=== PATIENT | male | born 1930 | race Caucasian/White ===

== ENCOUNTER → 2017-04-24 | Emergency (ER) | payer OTHER, BC ==
[~2017-04-24] MED LIST: LEVOFLOXACIN 500 MG TABLET (FP) ONE; LEVOFLOXACIN 500 MG TABLET (FP) PO ONE
[2017-04-24 23:19] VITALS: BMI 33.0
--- NOTE | 2017-04-24 23:21 | PDOC ---
*Physical Exam - Vital Signs Last Vital Signs Temp Pulse Resp BP Pulse Ox 98.2 F 78 14 112/65 96 04/24/17 23:08 04/24/17 23:08 04/24/17 23:08 04/24/17 23:08 04/24/17 23:08
--- NOTE | 2017-04-24 23:46 | PDOC ---
History of Present Illness - General Chief Complaint: Urinary Problem Stated Complaint: FEVER Time Seen by Provider: 04/24/17 23:13 History Source: Patient - History of Present Illness Initial Comments: 04/25/17 01:04 86-year-old male" I have a UTI" patient was discharged from [facility] on 04/22/17 for urinary tract infection. "I am currently not on antibiotics" as per patient. Denies fever, nausea vomiting diarrhea, flank pain , suprapubic pain at this time. As per her son is patient's been home he is unable to move out of bed due to the height of the mattress. Patient recently moved into this new apartment, son fears for the safety Due to the lack of furniture in the house. 04/25/17 06:55 Past History - Past Medical History Allergies/Adverse Reactions: Allergies Allergy/AdvReac Type Severity Reaction Status Date / Time No Known Allergies Allergy Verified 04/24/17 23:08 Home Medications: Ambulatory Orders Atorvastatin Ca [Lipitor -] 20 mg PO HS 02/25/14 Docusate Sodium [Colace] 100 mg PO HS 02/25/14 Latanoprost [Xalatan] 1 drop OU DAILY 02/25/14 Metoprolol Succinate [Toprol Xl] 50 mg PO HS 02/25/14 Trazodone HCl [Desyrel -] 50 mg PO HS 02/25/14 Sennosides [Senna] 2 tab PO HS 04/24/17 Tamsulosin HCl [Flomax] 0.4 mg PO DAILY 04/24/17 Warfarin Na [Coumadin] 0 mg PO DAILY 04/24/17 Cardiac Disorders: Yes (CABG) Disorders: Yes (RECURRENT UTIS) HTN: Yes Hypercholesterolemia: Yes - Surgical History Cardiac Surgery: Yes (cabg) - Suicide/Smoking/Psychosocial Hx Smoking History: Unknown if ever smoked Have you smoked in the past 12 months: No Information on smoking cessation initiated: No Hx Alcohol Use: No Drug/Substance Use Hx: No Review of Systems - Review of Systems Able to Perform ROS?: Yes Is the patient limited Israeli proficient: No *Physical Exam - Vital Signs Last Vital Signs Temp Pulse Resp BP Pulse Ox 98.2 F 78 14 112/65 96 04/24/17 23:08 04/24/17 23:08 04/24/17 23:08 04/24/17 23:08 04/24/17 23:08 Heart Score/ECG Review - ECG Intrepretation Rhythm: Regular Rhythm Comment:: 04/25/17 06:57 Sinus rhythm with sinus arrythmia NSR: 66 ED Treatment Course - LABORATORY CBC & Chemistry Diagram: 04/25/17 00:30 04/25/17 00:30 Progress Note - Progress Note Progress Note: A: Safe discharge need P; work up negative. no acute finding. patient need social work/ case manager specialist evaluation Medical Decision Making - Medical Decision Making 04/25/17 03:36 patient was placed on short stay status. patient's living condition is not safe family is unable to look after patient medical condition. will place on ED Obs for direct care counselor help for safe d/c plan and placement. *DC/Admit/Observation/Transfer Diagnosis at time of Disposition: Elderly person living alone, Discharge planning issues - Discharge Dispostion Admit: Yes - Referrals Referrals: Jacquelin Campuzano MD [Primary Care Provider] -
[2017-04-25 00:37] LABS: EOSINOPHIL 3.4 % (0-4.5); MCH 27.9 pg (25.7-33.7); MCHC 32.4 g/dl (32.0-35.9); MEAN PLT VOLUME 8.9 fl (7.5-11.1); NEUTROPHILS 74.9 % (42.8-82.8); PLATELET COUNT 191 K/MM3 (134-434); RDW 16.1 % (11.9-15.9); WHITE BLOOD COUNT 8.4 K/mm3 (4.0-10.0)
[2017-04-25 00:57] LABS: INR 1.46 (0.82-1.09); PROTHROMBIN TIME (PATIENT) 16.5 SEC (9.98-11.88)
[2017-04-25 01:07] LABS: ALK PHOS 81 U/L (45-117); ANION GAP 9 (8-16); BILIRUBIN,TOTAL 0.4 mg/dL (0.2-1.0); CALCIUM 8.1 mg/dL (8.5-10.1); CO2 26 mmol/L (21-32); CREATININE 0.9 mg/dL (0.7-1.3); GLUCOSE,RANDOM 97 mg/dL (74-106); SGOT/AST 20 U/L (15-37); SGPT/ALT 24 U/L (12-78); TOT PROT 6.5 g/dl (6.4-8.2)
[2017-04-25 02:59] LABS: URINE APPEARANCE SLCLOUDY; URINE BILIRUBIN NEGATIVE (NEGATIVE); URINE BLOOD NEGATIVE (NEGATIVE); URINE COLOR YELLOW; URINE GLUCOSE (UA) NEGATIVE (NEGATIVE); URINE KETONE NEGATIVE (NEGATIVE); URINE NITRITE NEGATIVE (NEGATIVE); URINE UROBILINOGEN NEGATIVE mg/dL (0.2-1.0)
[2017-04-25 03:11] LABS: URINE PROTEIN 1+ (NEGATIVE)
--- NOTE | 2017-04-25 07:29 | PDOC ---
*Physical Exam - Vital Signs Last Vital Signs Temp Pulse Resp BP Pulse Ox 98.2 F 78 14 112/65 96 04/24/17 23:08 04/24/17 23:08 04/24/17 23:08 04/24/17 23:08 04/24/17 23:08 - Physical Exam General Appearance: Yes: Appropriately Dressed. No: Apparent Distress HEENT: positive: Normal Voice Neck: positive: Supple Respiratory/Chest: positive: Lungs Clear, Normal Breath Sounds. negative: Respiratory Distress Cardiovascular: positive: Regular Rate, S1, S2 Gastrointestinal/Abdominal: negative: Tender, Soft Extremity: positive: Normal Inspection Integumentary: positive: Dry, Warm Neurologic: positive: Alert, Normal Mood/Affect ED Treatment Course - LABORATORY CBC & Chemistry Diagram: 04/25/17 00:30 04/25/17 00:30 - ADDITIONAL ORDERS Additional order review: Laboratory Results 04/25/17 04/25/17 04/25/17 02:20 00:30 00:30 PT with INR 16.50 H INR 1.46 H D Sodium 139 Potassium 4.4 Chloride 104 Carbon Dioxide 26 Anion Gap 9 BUN 13 Creatinine 0.9 Creat Clearance w eGFR > 60 Random Glucose 97 D Calcium 8.1 L Total Bilirubin 0.4 AST 20 D ALT 24 D Alkaline Phosphatase 81 Total Protein 6.5 Albumin 3.0 L Urine Color Yellow Urine Appearance Slcloudy Urine pH 6.0 Urine Protein 1+ H Urine Glucose (UA) Negative Urine Ketones Negative Urine Blood Negative Urine Nitrite Negative Urine Bilirubin Negative Urine Urobilinogen Negative 04/25/17 00:30 RBC 5.13 MCV 86.0 MCHC 32.4 RDW 16.1 H MPV 8.9 Neutrophils % 74.9 Lymphocytes % 12.9 D Monocytes % 7.8 Eosinophils % 3.4 Basophils % 1.0 Medical Decision Making - Medical Decision Making 04/25/17 07:28 Pt signed out to me at 7am 86-year-old male history of hyperlipidemia, hypertension, CAD status post CABG, CHF, afib on coumaidn, CVA, CKD, urosepsis, BPH, admitted to [facility] for UTI and discharged approximately 3 days ago and now brought in by son who states patient is not safe to be home as recently moved into new apartment and does not have furniture. Patient currently sleeping on mattress on the floor. Patient has no acute complaints in this time and as per prior team, labs and UA in ED within normal limits. Patient pending assessment/disposition by manager case this a.m. 04/25/17 11:33 manager process requesting PT eval in ED. PT evaluated by PT who recommends short- term placement for safe management of ambulation and ADLs. Plan is for patient to be placed in [facility] per manager case. I contacted [facility] and spoke to staff in and medical records. Will fax over report from patient's last admission. Medical release form signed by patient and faxed over to facility 04/25/17 11:34 04/25/17 14:23 Medical records received from [facility]. Confirms that patient was being treated for UTI after presenting with generalized weakness. Had 4+ pan w/ LE on UA, no ucx on records. As per documentation, Levaquin 500 mg sent to pharmacy for a total of 3 tablets. Will give 1 dose while here in ED. Will include on patient's discharge papers to alf, that patient's need to take 2 additional doses of Levaquin 04/25/17 14:26 04/25/17 14:36 *DC/Admit/Observation/Transfer Diagnosis at time of Disposition: Elderly person living alone, Discharge planning issues UTI (urinary tract infection) Qualifiers: Urinary tract infection type: site unspecified Hematuria presence: without hematuria Qualified Code(s): N39.0 - Urinary tract infection, site not specified - Discharge Dispostion Disposition: HOME Condition at time of disposition: Good - Prescriptions Prescriptions: Levofloxacin [Levaquin] 500 mg PO DAILY #2 tablet - Referrals Referrals: Jacquelin Campuzano MD [Primary Care Provider] - - Patient Instructions Printed Discharge Instructions: DI for Urinary Tract Infection (UTI) Additional Instructions: Please continue Levaquin for UTI that was diagnosed at [facility]. You were discharged with Levaquin 500 mg daily for a total of 3 tablets. We gave you a dose of Levaquin while you were in ED. You will need to take Levaquin for 2 additional days. We sent rx to your pharmacy ([facility]) Please follow up with your PMD for your chronic medical conditions - Post Discharge Activity
[2017-04-25 09:23] LABS: URINE LEUK ESTERASE TRACE (NEGATIVE)
[2017-04-25 14:52] VITALS: BP 126/77; PULSE 72; TEMP 97.7
--- NOTE | 2017-04-25 20:02 | EKG ---
Test Reason : Blood Pressure : / mmHG Vent. Rate : 066 BPM Atrial Rate : 066 BPM P-R Int : 184 ms QRS Dur : 112 ms QT Int : 448 ms P-R-T Axes : 082 007 055 degrees QTc Int : 469 ms POOR DATA QUALITY, INTERPRETATION MAY BE ADVERSELY AFFECTED SINUS RHYTHM WITH ATRIAL PREMATURE BEATS LOW VOLTAGE QRS POSSIBLE INFERIOR INFARCT , AGE UNDETERMINED ABNORMAL ECG WHEN COMPARED WITH ECG OF 03-JUN-2010 19:32, BORDERLINE CRITERIA FOR INFERIOR INFARCT ARE NOW PRESENT BASELINE ARTIFACT REPEAT EKG INDICATED Confirmed by JAYMIE RAY MD ([id number]) on 04/25/2017 8:02:23 PM Referred By: Confirmed By:JAYMIE RAY MD
== END ==
LOC: JER 23:05
DX: Z59.1 Inadequate housing (principal); Z87.440 Personal history of urinary (tract) infections; I25.810 Atherosclerosis of coronary artery bypass graft(s) without angina pectoris; I13.10 Hypertensive heart and chronic kidney disease without heart failure, with stage 1 through stage 4 chronic kidney disease, or unspecified chronic kidney disease; N18.9 Chronic kidney disease, unspecified; Z95.1 Presence of aortocoronary bypass graft; I48.91 Unspecified atrial fibrillation; Z79.01 Long term (current) use of anticoagulants; E78.00 Pure hypercholesterolemia, unspecified; N40.0 Benign prostatic hyperplasia without lower urinary tract symptoms; Z86.73 Personal history of transient ischemic attack (TIA), and cerebral infarction without residual deficits
CPT/HCPCS: 36415; 71010-TC; 80053; 81003; 81015; 85025; 85610; 87086; 93005; 93010; 99285-25

== ENCOUNTER 2017-05-23 13:40 | Emergency (ER) | payer OTHER, BC ==
[2017-05-23 13:51] VITALS: BMI 33.9
[2017-05-23 16:12] LABS: URINE APPEARANCE TURBID; URINE BILIRUBIN NEGATIVE (NEGATIVE); URINE BLOOD 1+ (NEGATIVE); URINE COLOR AMBER; URINE GLUCOSE (UA) NEGATIVE (NEGATIVE); URINE KETONE NEGATIVE (NEGATIVE); URINE NITRITE POSITIVE (NEGATIVE); URINE UROBILINOGEN NEGATIVE mg/dL (0.2-1.0)
--- NOTE | 2017-05-23 16:27 | PDOC ---
History of Present Illness - General Chief Complaint: Urinary Problem Stated Complaint: POSS UTI Time Seen by Provider: 05/23/17 14:46 History Source: Patient Exam Limitations: No Limitations - History of Present Illness Initial Comments: 05/23/17 16:25 87yo male with h/o HTN, hyperlipidemia, CAD s/p CABG, h/o CVA, paroxysmal atrial fibrillation on pradaxa, BPH, CKD, recurrent UTIs with h/o indwelling lang and suprapubic catheters who presents to the ED after hwe was sent here by his son for UTI. Patient claims that he knocked over a chamber pot of urine that the son cleaned up which made him realize the urine smelled bad and looked cloudy. Past History - Past Medical History Allergies/Adverse Reactions: Allergies Allergy/AdvReac Type Severity Reaction Status Date / Time No Known Allergies Allergy Verified 05/23/17 13:42 Home Medications: Ambulatory Orders Atorvastatin Ca [Lipitor -] 20 mg PO HS 02/25/14 Docusate Sodium [Colace] 100 mg PO HS 02/25/14 Latanoprost [Xalatan] 1 drop OU DAILY 02/25/14 Metoprolol Succinate [Toprol Xl] 50 mg PO HS 02/25/14 Trazodone HCl [Desyrel -] 50 mg PO HS 02/25/14 Sennosides [Senna] 2 tab PO HS 04/24/17 Tamsulosin HCl [Flomax] 0.4 mg PO DAILY 04/24/17 Warfarin Na [Coumadin] 0 mg PO DAILY 04/24/17 Levofloxacin [Levaquin] 500 mg PO DAILY #2 tablet 04/25/17 Cephalexin [Keflex] 500 mg PO BID 7 Days #14 capsule 05/23/17 Cardiac Disorders: Yes (CABG) Dementia: Yes (early alzheimers?) Disorders: Yes (RECURRENT UTIS) HTN: Yes Hypercholesterolemia: Yes - Surgical History Cardiac Surgery: Yes (cabg) - Suicide/Smoking/Psychosocial Hx Smoking History: Never smoked Have you smoked in the past 12 months: No Hx Alcohol Use: No Drug/Substance Use Hx: No Review of Systems - Review of Systems Able to Perform ROS?: Yes Constitutional: No: Symptoms Reported HEENTM: No: Symptoms Reported Respiratory: No: Symptoms reported Cardiac (ROS): No: Symptoms Reported ABD/GI: No: Symptoms Reported : No: Symptoms Reported Musculoskeletal: No: Symptoms Reported Integumentary: No: Symptoms Reported Neurological: No: Symptoms reported All Other Systems: Reviewed and Negative *Physical Exam - Vital Signs Last Vital Signs Temp Pulse Resp BP Pulse Ox 98.3 F 70 18 111/50 96 05/23/17 13:42 05/23/17 13:42 05/23/17 13:42 05/23/17 13:42 05/23/17 13:42 - Physical Exam General Appearance: Yes: Disheveled, Obese HEENT: positive: EOMI, Pale Conjunctivae Neck: negative: Tender Respiratory/Chest: positive: Lungs Clear, Normal Breath Sounds. negative: Chest Tender Cardiovascular: positive: Regular Rhythm, Regular Rate, S1, S2 Gastrointestinal/Abdominal: positive: Normal Bowel Sounds, Protuberent, Distended. negative: Tender Extremity: positive: Normal Capillary Refill Neurologic: positive: Fully Oriented, Alert, Motor Strength 5/5 ED Treatment Course - LABORATORY CBC & Chemistry Diagram: 05/23/17 16:22 05/23/17 16:22 Medical Decision Making - Medical Decision Making 05/23/17 19:06 87M sent by son for UTI. senior operations manager investigating patient recurrent admissions for UTI followed by Rehab/NH stay back to back. Urine turbid. Patient treated with Keflex. Patient demanding to be treated outpatient and wishes to leave the ER. Keflex prescription sent *DC/Admit/Observation/Transfer Diagnosis at time of Disposition: UTI (urinary tract infection) - Discharge Dispostion Disposition: HOME Admit: No - Prescriptions Prescriptions: Cephalexin [Keflex] 500 mg PO BID 7 Days #14 capsule - Referrals Referrals: Ana Paula Stephens MD [Primary Care Provider] - - Patient Instructions - Post Discharge Activity
[2017-05-23 16:50] LABS: BASOPHIL 0.3 % (0-2.0); EOSINOPHIL 1.3 % (0-4.5); MCH 26.9 pg (25.7-33.7); MCHC 31.4 g/dl (32.0-35.9); MEAN CELL VOLUME 85.6 fl (80-96); MEAN PLT VOLUME 8.7 fl (7.5-11.1); PLATELET COUNT 236 K/MM3 (134-434); RDW 16.8 % (11.9-15.9); WHITE BLOOD COUNT 11.6 K/mm3 (4.0-10.0)
[2017-05-23 17:04] LABS: URINE PROTEIN 2+ (NEGATIVE)
[2017-05-23 17:15] LABS: ALBUMIN 3.3 g/dl (3.4-5.0); ALK PHOS 92 U/L (45-117); ANION GAP 5 (8-16); BILIRUBIN,TOTAL 0.3 mg/dL (0.2-1.0); CALCIUM 8.8 mg/dL (8.5-10.1); CO2 33 mmol/L (21-32); CREATININE 1.2 mg/dL (0.7-1.3); GLUCOSE,RANDOM 89 mg/dL (74-106); SGOT/AST 13 U/L (15-37); SGPT/ALT 17 U/L (12-78); TOT PROT 6.9 g/dl (6.4-8.2)
[2017-05-23] MEDS ORDERED: CEPHALEXIN MONOHYDRATE 500 MG CAPSULE (UD) PO ONE (17:31)
--- NOTE | 2017-05-23 17:55 | PDOC ---
Attending Attestation - Resident Resident Name: Semaj West - ED Attending Attestation I have performed the following: I have examined & evaluated the patient, The case was reviewed & discussed with the resident, I agree w/resident's findings & plan, Exceptions are as noted - HPI HPI: 05/23/17 18:29 87 yo male came in because son was concerned his urine"smelled bad". - Physicial Exam PE: 05/23/17 18:32 heavy set alert 87 yo male brougth in by
[2017-05-23 18:49] LABS: URINE BACTERIA MODERATE /hpf (NONE SEEN); URINE MUCUS RARE; URINE RBC 16 /hpf (0-3); URINE WBC 1553 /hpf (3-5)
[2017-05-23 19:13] VITALS: BP 110/78; PULSE 74; TEMP 98.8
[2017-05-23 20:24] LABS: URINE LEUK ESTERASE 2+ (NEGATIVE)
== END 2017-05-23 20:40 | disposition home or self-care (01) ==
LOC: JER 13:40
DX: N39.0 Urinary tract infection, site not specified (principal); I25.810 Atherosclerosis of coronary artery bypass graft(s) without angina pectoris; I10 Essential (primary) hypertension; Z95.1 Presence of aortocoronary bypass graft; I48.0 Paroxysmal atrial fibrillation; Z79.01 Long term (current) use of anticoagulants; I12.9 Hypertensive chronic kidney disease with stage 1 through stage 4 chronic kidney disease, or unspecified chronic kidney disease; N18.9 Chronic kidney disease, unspecified; E78.00 Pure hypercholesterolemia, unspecified; N40.0 Benign prostatic hyperplasia without lower urinary tract symptoms; Z86.73 Personal history of transient ischemic attack (TIA), and cerebral infarction without residual deficits; G30.8 Other Alzheimer's disease; F02.80 Dementia in other diseases classified elsewhere, unspecified severity, without behavioral disturbance, psychotic disturbance, mood disturbance, and anxiety; Z87.440 Personal history of urinary (tract) infections
CPT/HCPCS: 36415; 80053; 81003; 81015; 85025; 87086; 99282-25

== ENCOUNTER 2017-08-24 01:26 | Inpatient (IN) | payer OTHER, BC ==
[2017-08-24 02:05] VITALS: BMI 26.9
--- NOTE | 2017-08-24 02:36 | PDOC ---
Attending Attestation - HPI HPI: 08/24/17 02:44 The patient is a 87 year old female, with a significant past medical history of indwelling lang, htn, hld, and frequent UTI, who presents to the emergency department with one week of foul smelling, cloudy urine. He denies pain on urination. The patient states this feels like a UTI. The patient denies chest pain, shortness of breath, headache and dizziness. The patient denies fever, chills, nausea, vomit, diarrhea and constipation. The patient denies dysuria, frequency, urgency and hematuria. Allergies: NKDA - Medical Decision Making 08/24/17 02:44 Documentation prepared by Karena Collado, acting as medical physics professor for Gopal Gayle DO <Karena Collado - Last Filed: 08/24/17 02:43> - Resident Resident Name: Sd Gatica - ED Attending Attestation I have performed the following: I have examined & evaluated the patient, The case was reviewed & discussed with the resident, I agree w/resident's findings & plan, Exceptions are as noted - Physicial Exam PE: 08/24/17 03:23 Physical Exam General Appearance: Yes: Appropriately Dressed. No: Apparent Distress, Intoxicated HEENT: positive: EOMI, COLIN, Normal ENT Inspection, Normal Voice, TMs Normal, Pharynx Normal. negative: Pale Conjunctivae, Photophobia, Scleral Icterus (R), Scleral Icterus (L) Neck: positive: Trachea midline, Normal Thyroid, Supple. negative: Tender, Rigid, Carotid bruit, Stridor, Lymphadenopathy (R), Lymphadenopathy (L), Thyromegaly Respiratory/Chest: positive: Lungs Clear, Normal Breath Sounds. negative: Chest Tender, Respiratory Distress, Accessory Muscle Use, Labored Respiration, RES, Crackles, Rales, Rhonchi, Stridor, Wheezing, Dullness Cardiovascular: positive: Regular Rhythm, Regular Rate, S1, S2. negative: Edema , JVD, Murmur, Bradycardia, Tachycardia Vascular Pulses: Dorsalis-Pedis (R): 2+, Doralis-Pedis (L): 2+ Gastrointestinal/Abdominal: positive: Normal Bowel Sounds, Flat, Soft. negative : Tender, Organomegaly, Pulsatile Mass, Increased Bowel Sounds, Decreased BS, Distended, Guarding, Rebound, Hernia, Hepatomegaly, Spleenomegaly Lymphatic: negative: Adenopathy, Tenderness Musculoskeletal: positive: Normal Inspection. negative: CVA Tenderness, Decreased Range of Motion Extremity: positive: Normal Capillary Refill, Normal Inspection, Normal Range of Motion, Pelvis Stable. negative: Tender, Pedal Edema, Swelling, Erythema Integumentary: positive: Normal Color, Dry, Warm. negative: Cyanotic, Erythema , Jaundice, Rash Neurologic: positive: systems security analyst II-XII NML intact, Fully Oriented, Alert, Normal Mood/ Affect, Motor Strength 5/5. negative: EOM Palsy, Facial Droop, Sensory Deficit <Gopal Gayle - Last Filed: 08/24/17 03:24>
[2017-08-24 02:39] LABS: BASO % 0.5 % (0-2.0); EOS % 2.4 % (0-4.5); HEMATOCRIT 39.6 % (35.4-49); HEMOGLOBIN 12.8 GM/dL (11.7-16.9); LYMPH % 9.5 % (8-40); MCHC 32.2 g/dl (32.0-35.9); MEAN CELL VOLUME 86.9 fl (80-96); MEAN PLT VOLUME 9.2 fl (7.5-11.1); MONO % 9.7 % (3.8-10.2); NEUT % 77.9 % (42.8-82.8); PLATELET COUNT 169 K/MM3 (134-434); RBC 4.56 M/mm3 (4.00-5.60); RDW 16.1 % (11.9-15.9); WHITE BLOOD COUNT 7.4 K/mm3 (4.0-10.0)
--- NOTE | 2017-08-24 02:49 | PDOC ---
History of Present Illness - General Chief Complaint: Urinary Problem Stated Complaint: UTI Time Seen by Provider: 08/24/17 01:58 - History of Present Illness Initial Comments: 08/24/17 02:43 The patient is an 87 year old male with a history of HTN, HLD, CAD, Recurrent UTI who presents for evaluation for a possible UTI. The patient reports a 1 week history of foul smelling and cloudy urine prompting his presentation to the ED for evaluation. He states that he believes he has another UTI. He otherwise denies fevers, chills, SOB, chest pain, nausea, vomiting, abdominal pain, or changes with bowel movements. He denies any pain with urination or burning on urination as well. Past History - Past Medical History Allergies/Adverse Reactions: Allergies Allergy/AdvReac Type Severity Reaction Status Date / Time No Known Allergies Allergy Verified 08/24/17 02:03 Home Medications: Ambulatory Orders Atorvastatin Ca [Lipitor -] 20 mg PO HS 02/25/14 Docusate Sodium [Colace] 100 mg PO HS 02/25/14 Latanoprost [Xalatan] 1 drop OU DAILY 02/25/14 Metoprolol Succinate [Toprol Xl] 50 mg PO HS 02/25/14 traZODone HCL [Desyrel -] 50 mg PO HS 02/25/14 Sennosides [Senna] 2 tab PO HS 04/24/17 Tamsulosin HCl [Flomax] 0.4 mg PO DAILY 04/24/17 Warfarin Na [Coumadin] 0 mg PO DAILY 04/24/17 Levofloxacin [Levaquin] 500 mg PO DAILY #2 tablet 04/25/17 Cephalexin [Keflex] 500 mg PO BID 7 Days #14 capsule 05/23/17 Doxycycline Hyclate [Vibramycin -] 100 mg PO BID #14 cap 08/24/17 Cardiac Disorders: Yes (CABG) Dementia: Yes (early alzheimers?) Disorders: Yes (RECURRENT UTIS) HTN: Yes Hypercholesterolemia: Yes - Surgical History Cardiac Surgery: Yes (cabg) - Suicide/Smoking/Psychosocial Hx Smoking History: Never smoked Have you smoked in the past 12 months: No Information on smoking cessation initiated: No Hx Alcohol Use: No Drug/Substance Use Hx: No Review of Systems - Review of Systems Comments:: 08/24/17 02:49 Constitutional: No fevers, chills, fatigue, malaise HEENT: No Rhinorrhea, nasal congestion, visual changes Cardiovascular: No chest pain, syncope, palpitations, lightheadedness Respiratory: No Cough, SOB, Hemoptysis, Gastrointestinal: No Abdominal pain, Nausea, Vomiting, Constipation, Diarrhea, Melena Genitourinary: Cloudy and foul smelling urine. No Dysuria, Frequency, Urgency, Hesitancy, Hematuria, Flank pain Musculoskeletal: No Myalgia, arthralgia Skin: No rashes, itching, bruising, pallor Neurologic: No Headache, Dizziness, Numbness, Weakness, or Tingling Psychiatric: No Hallucinations. No SI or HI *Physical Exam - Vital Signs Last Vital Signs Temp Pulse Resp BP Pulse Ox 64 14 99/53 94 L 08/24/17 02:03 08/24/17 02:03 08/24/17 02:03 08/24/17 02:03 - Physical Exam Comments: 08/24/17 02:49 General Appearance: Nourished. No Apparent Distress HEENT: No Pharyngeal Erythema, Tonsillar Exudate, Tonsillar Erythema Neck: No Cervical Lymphadenopathy Respiratory/Chest: Lungs Clear, Normal Breath Sounds. No Crackles, Rales, Rhonchi, Wheezing Cardiovascular: Regular Rhythm, Regular Rate. No Murmur, Gallops, Rubs Gastrointestinal/Abdominal: Normal Bowel Sounds, Soft. No Guarding, Rebound, Tenderness Musculoskeletal: No CVA Tenderness Extremity: Normal Capillary Refill Integumentary: Normal Color, Dry, Warm Neurologic: Fully Oriented, Alert, Normal Mood/Affect, Normal Response, ED Treatment Course - LABORATORY CBC & Chemistry Diagram: 08/24/17 02:32 08/24/17 02:32 - ADDITIONAL ORDERS Additional order review: 08/24/17 02:32 RBC 4.56 MCV 86.9 MCHC 32.2 RDW 16.1 H MPV 9.2 Neutrophils % 77.9 Lymphocytes % 9.5 Monocytes % 9.7 Eosinophils % 2.4 D Basophils % 0.5 Medical Decision Making - Medical Decision Making 08/24/17 02:50 The patient is an 87 year old male with a history of HTN, HLD, CAD, Recurrent UTI who presents for evaluation for a possible UTI. Given the patient's history of recurrently uti and symptoms, it is likely his symptoms are due to another UTI. We will send a cbc, cmp, UA, urine culture to evaluate further. We will continue to monitor and reassess. 08/24/17 03:49 cbc, cmp are unremarkable. UA demonstrates 1+ leuk esterase with 355 WBC concerning for uti. Given the patient's recurrent uti despite previous treatment with keflex and levoquin, we believe he requires admission for iv antibiotics at this time. We discussed the case with the hospitalist team who accepted the patient for admission. We will start the patient on ceftriaxone here in the ED. We discussed the results and the plan with the patient who voiced understanding and is agreeable with the plan. *DC/Admit/Observation/Transfer Diagnosis at time of Disposition: UTI (urinary tract infection) Qualifiers: Urinary tract infection type: acute cystitis Hematuria presence: with hematuria Qualified Code(s): N30.01 - Acute cystitis with hematuria - Discharge Dispostion Condition at time of disposition: Stable Admit: Yes - Prescriptions Prescriptions: Doxycycline Hyclate [Vibramycin -] 100 mg PO BID #14 cap - Referrals Referrals: Ana Paula Stephens MD [Primary Care Provider] - - Patient Instructions - Post Discharge Activity
[2017-08-24 03:04] LABS: ALBUMIN 2.9 g/dl (3.4-5.0); ANION GAP 10 (8-16); BILIRUBIN,TOTAL 0.5 mg/dL (0.2-1.0); BLOOD UREA NITROGEN 22 mg/dL (7-18); CALCIUM 8.7 mg/dL (8.5-10.1); CHLORIDE 104 mmol/L (98-107); CO2 27 mmol/L (21-32); CREATININE 0.9 mg/dL (0.7-1.3); GLUCOSE,RANDOM 95 mg/dL (74-106); SGPT/ALT 10 U/L (12-78); SODIUM 141 mmol/L (136-145); TOT PROT 6.4 g/dl (6.4-8.2)
[2017-08-24 03:05] LABS: ALK PHOS 85 U/L (45-117)
[2017-08-24 03:06] LABS: POTASSIUM 4.4 mmol/L (3.5-5.1); SGOT/AST 16 U/L (15-37)
[2017-08-24 03:12] LABS: URINE APPEARANCE CLOUDY; URINE BILIRUBIN NEGATIVE (NEGATIVE); URINE BLOOD 1+ (NEGATIVE); URINE COLOR DKYELLOW; URINE GLUCOSE (UA) NEGATIVE (NEGATIVE); URINE KETONE TRACE (NEGATIVE); URINE NITRITE NEGATIVE (NEGATIVE); URINE UROBILINOGEN NEGATIVE mg/dL (0.2-1.0)
[2017-08-24 03:17] LABS: URINE LEUK ESTERASE 1+ (NEGATIVE); URINE PROTEIN 1+ (NEGATIVE)
[2017-08-24 03:19] LABS: EPI CELLS FEW /HPF (FEW); URINE BACTERIA MANY /hpf (NONE SEEN); URINE MUCUS RARE
[2017-08-24] MEDS ORDERED: DOXYCYCLINE HYCLATE 100 MG CAPSULE PO ONE (03:22)
[2017-08-24] MEDS ORDERED: cefTRIAXone 1 GM/50 ML BAG (PRE-DOCKED) IVPB ONE (04:00)
--- NOTE | 2017-08-24 04:08 | HP ---
PCP: Ana Paula Stephens CHIEF COMPLAINT: Foul-smelling urine HISTORY OF PRESENT ILLNESS: This is an 87 year old man with a history of UTIs who comes to the ER this morning at the advice of his son because he has been noticing foul-smelling urine and urinary frequency for about 2 weeks. He denies fever, chills, abdominal pain, back pain, flank pain, dysuria, hematuria, nausea. He had been admitted at [facility] in April 2017 for UTI and treated with Levaquin. He was seen in the ED here on 04/25 and admitted to [facility]. He was discharged from [facility] on 05/22 and seen in the ED here on 05/23 and again diagnosed with a UTI. He was treated with Keflex. Urine culture was contaminated. PAST MEDICAL HISTORY CAD HTN Hyperlipidemia PAF BPH UTIs PAST SURGICAL HISTORY CABG Allergies No Known Allergies Allergy (Verified 08/24/17 02:03) Home Medications Medication Instructions Recorded Atorvastatin Ca [Lipitor -] 20 mg PO HS 02/25/14 Docusate Sodium [Colace] 100 mg PO HS 02/25/14 Latanoprost [Xalatan] 1 drop OU DAILY 02/25/14 Metoprolol Succinate [Toprol Xl] 50 mg PO HS 02/25/14 traZODone HCL [Desyrel -] 50 mg PO HS 02/25/14 Sennosides [Senna] 2 tab PO HS 04/24/17 Tamsulosin HCl [Flomax] 0.4 mg PO DAILY 04/24/17 Warfarin Na [Coumadin] 0 mg PO DAILY 04/24/17 Levofloxacin [Levaquin] 500 mg PO DAILY #2 tablet 04/25/17 Cephalexin [Keflex] 500 mg PO BID 7 Days #14 capsule 05/23/17 Doxycycline Hyclate [Vibramycin -] 100 mg PO BID #14 cap 08/24/17 Social History: Smoking: Former smoker Alcohol: Denies Drugs: Denies Recent Travel: No Family History: Unremarkable REVIEW OF SYSTEMS CONSTITUTIONAL: Absent: fever, chills, diaphoresis, generalized weakness, malaise, loss of appetite, weight change HEENT: Absent: rhinorrhea, nasal congestion, throat pain, throat swelling, difficulty swallowing, mouth swelling, ear pain, eye pain, visual changes CARDIOVASCULAR: Absent: chest pain, syncope, palpitations, lightheadedness, peripheral edema RESPIRATORY: Absent: cough, shortness of breath, dyspnea with exertion, orthopnea, wheezing, stridor, hemoptysis GASTROINTESTINAL: Absent: abdominal pain, abdominal distension, nausea, vomiting , diarrhea, constipation, melena, hematochezia GENITOURINARY: Present: urinary frequency. Absent: dysuria, urgency, hesitancy , hematuria, flank pain MUSCULOSKELETAL: Absent: myalgia, arthralgia, joint swelling, back pain, neck pain SKIN: Absent: rash, itching, pallor HEMATOLOGIC/IMMUNOLOGIC: Absent: easy bleeding, easy bruising, lymphadenopathy ENDOCRINE: Absent: unexplained weight gain, unexplained weight loss, heat intolerance, cold intolerance NEUROLOGIC: Absent: headache, focal weakness, paresthesias, dizziness, unsteady gait, seizure, mental status changes, bladder or bowel incontinence PSYCHIATRIC: Absent: anxiety, depression, suicidal or homicidal ideation, hallucinations. PHYSICAL EXAMINATION Vital Signs - 24 hr 08/24/17 02:03 Pulse Rate 64 Respiratory 14 Rate Blood Pressure 99/53 O2 Sat by Pulse 94 L Oximetry (%) GENERAL: Awake, alert, and fully oriented, in no acute distress. HEAD: Normal with no signs of trauma. EYES: Pupils equal, round and reactive to light, extraocular movements intact, sclerae anicteric, conjunctivae clear. EARS, NOSE, THROAT: Ears normal, nares patent, oropharynx clear without exudates. Moist mucous membranes. NECK: Normal range of motion, supple without lymphadenopathy, JVD, or masses. LUNGS: Breath sounds equal, clear to auscultation bilaterally. No wheezes, and no crackles. No accessory muscle use. HEART: Regular rate and rhythm, normal S1 and S2 without murmur, rub or gallop. ABDOMEN: Obese, soft, nontender, not distended, normoactive bowel sounds, no guarding, no rebound, no masses. No hepatomegaly or splenomegaly. MUSCULOSKELETAL: (+) Left ankle deformity. No CVA tenderness. UPPER EXTREMITIES: 2+ pulses, warm, well-perfused. No cyanosis. No clubbing. No peripheral edema. LOWER EXTREMITIES: 2+ pulses, warm, well-perfused. No calf tenderness. No peripheral edema. NEUROLOGICAL: Cranial nerves II-XII intact. Normal speech. Gait not observed. PSYCHIATRIC: Cooperative. Good eye contact. Appropriate mood and affect. SKIN: Warm, dry, normal turgor, no rashes or lesions noted, normal capillary refill. Laboratory Results - last 24 hr 08/24/17 08/24/17 08/24/17 02:32 02:32 03:03 WBC 7.4 D RBC 4.56 Hgb 12.8 Hct 39.6 MCV 86.9 MCH 28.0 MCHC 32.2 RDW 16.1 H Plt Count 169 D MPV 9.2 Neutrophils % 77.9 Lymphocytes % 9.5 Monocytes % 9.7 Eosinophils % 2.4 D Basophils % 0.5 Sodium 141 Potassium 4.4 Chloride 104 Carbon Dioxide 27 Anion Gap 10 BUN 22 H Creatinine 0.9 D Creat Clearance w eGFR > 60 Random Glucose 95 Calcium 8.7 Total Bilirubin 0.5 D AST 16 D ALT 10 L D Alkaline Phosphatase 85 Total Protein 6.4 Albumin 2.9 L Urine Color Dkyellow Urine Appearance Cloudy Urine pH 8.0 Ur Specific Ransom 1.015 Urine Protein 1+ H Urine Glucose (UA) Negative Urine Ketones Trace H Urine Blood 1+ H Urine Nitrite Negative Urine Bilirubin Negative Urine Urobilinogen Negative Ur Leukocyte Esterase 1+ H Urine WBC (Auto) 355 Urine RBC (Auto) 17 Ur Epithelial Cells Few Urine Bacteria Many Urine Mucus Rare ASSESSMENT/PLAN: This is an 87 year old man with a history of UTIs (last 05/2017), CAD, CABG, HTN , hyperlipidemia, PAF, BPH who presented to the ED today with foul-smelling urine and frequency of urination x 2 weeks. He was found to have 1+ protein, 1+ blood, 1+ leukocyte esterase, 355 WBC in his urine. 1. UTI, recurrent - No evidence for sepsis - Afebrile and has normal WBC - As per the patient, he has not been on antibiotics since 05/2017 - urine culture at that time was contaminated - There is no known history of resistance - Rocephin given in ED - will continue - Follow-up urine culture 2. CAD, history of CABG - Continue Toprol XL, Lipitor 3. HTN - Continue Toprol XL 4. Hyperlipidemia - Continue Lipitor 5. Paroxysmal atrial fibrillation - Currrently in sinus rhythm - Was on Coumadin in the past but not clear if he is on any anticoagulant at this time - Will check INR and confirm medications 6. BPH - Continue Flomax Visit type - Emergency Visit Emergency Visit: Yes Care time: The patient presented to the Emergency Department on the above date and was hospitalized for further evaluation of their emergent condition. - New Patient This patient is new to me today: Yes Date on this admission: 08/24/17 - Critical Care Critical Care patient: No Hospitalist Screening - Colonoscopy Questionnaire Colonoscopy Questionnaire: Colonoscopy Questionnaire - Patient: 50 - 75 years old and never had a screening colonoscopy: No History of colon or rectal polyps, or CA: No History of IBD, Crohn's disease or UC: No History of abdominal radiation therapy as a child: No - Relative: 1 with colon or rectal CA, or polyps at age 60 or younger: No Colon or rectal CA diagnosed at age 45 or younger: No Multiple relatives with colon or rectal CA: No - Outcome: Screening Result: Negative Screen
[2017-08-24] MEDS ORDERED: ACETAMINOPHEN 325 MG TABLET (FP) PO PRN (04:41)
[2017-08-24] MEDS ORDERED: ONDANSETRON 4 MG/2 ML VIAL IVPUSH PRN (04:41)
[2017-08-24] MEDS: SODIUM CHLORIDE 1,000 ML IV SCH ×2 (05:43→17:36)
[2017-08-24 08:36] LABS: INR 1.98 (0.82-1.09); PROTHROMBIN TIME (PATIENT) 22.4 SEC (9.98-11.88)
[2017-08-24 08:39] LABS: ACTIVATED PTT 33.5 SECONDS (26.9-34.4)
[2017-08-24] MEDS: TAMSULOSIN HCL 0.4 MG CAP.ER.24H (FP) PO SCH (08:55)
--- NOTE | 2017-08-24 10:23 | PN ---
Progress Note (short form) - Note Progress Note: PATIENT AWAKE ALERT OBSERVATION FOR UTI TREATING WITH IV CEFTRIAXONE AWAIT CX CHECKING INR
--- NOTE | 2017-08-24 12:16 | EKG ---
Test Reason : Blood Pressure : / mmHG Vent. Rate : 051 BPM Atrial Rate : 051 BPM P-R Int : 200 ms QRS Dur : 114 ms QT Int : 450 ms P-R-T Axes : 052 031 -06 degrees QTc Int : 414 ms SINUS BRADYCARDIA POSSIBLE INFERIOR INFARCT (CITED ON OR BEFORE 25-APR-2017) ABNORMAL ECG WHEN COMPARED WITH ECG OF 25-APR-2017 01:34, T WAVE INVERSION NOW EVIDENT IN INFERIOR LEADS QT HAS SHORTENED Confirmed by HUGO BERG MD ([id number]) on 08/24/2017 12:16:26 PM Referred By: Confirmed By:HUGO BERG MD
[2017-08-24] MEDS ORDERED: FLU VACCINE QUAD 60 MCG/0.5 ML (MDV 17-18) IM ONE (16:45)
[2017-08-24] MEDS ORDERED: WARFARIN NA 5 MG TABLET (UD) PO SCH (18:00)
[2017-08-24] MEDS ORDERED: WARFARIN NA 5 MG TABLET (UD) ONE (18:34)
[2017-08-24] MEDS ORDERED: WARFARIN NA 2 MG TABLET (UD) ONE (18:34)
[2017-08-24] MEDS: WARFARIN NA 2 MG, WARFARIN NA 5 MG PO SCH (18:37)
[2017-08-24] MEDS ORDERED: PT OWN MED DRAWER 7, Y5N ONE (21:19)
[2017-08-24] MEDS: traZODone HCL 50 MG TABLET (FP) PO SCH (21:55)
[2017-08-24] MEDS: ATORVASTATIN CA 20 MG TABLET (FP) PO SCH (21:55)
[2017-08-24] MEDS: DOCUSATE SODIUM 100 MG CAPSULE (FP) PO SCH (21:55)
[2017-08-24] MEDS: LATANOPROST 0.005% OPHTH SOLN 2.5ML BOTTLE OU SCH (21:56)
[2017-08-24] MEDS: SENNOSIDES 8.6MG TABLET (FP) PO SCH (21:56)
[2017-08-25] MEDS: SODIUM CHLORIDE 1,000 ML IV SCH ×2 (04:45→06:08)
--- NOTE | 2017-08-25 06:24 | PN ---
Progress Note, Physician - Current Medication List Current Medications: Active Medications Acetaminophen (Tylenol -) 650 mg PO Q4H PRN PRN Reason: PAIN OR FEVER Atorvastatin Calcium (Lipitor -) 20 mg PO [facility] Last Admin: 08/24/17 21:55 Dose: 20 mg Docusate Sodium (Colace -) 100 mg PO [facility] Last Admin: 08/24/17 21:55 Dose: 100 mg CEFTRIAXONE 1 G/50 ML PREMIX (Ceftriaxone 1 Gm-D5w Bag) 50 mls @ 200 mls/hr IVPB DAILY [facility] Sodium Chloride (Normal Saline -) 1,000 mls @ 83 mls/hr IV ASDIR [facility] Last Admin: 08/25/17 06:08 Dose: 83 mls/hr Latanoprost (Xalatan 0.005% Eye Drops -) 1 drop OU [facility] Last Admin: 08/24/17 21:56 Dose: 1 drop Metoprolol Succinate (Toprol Xl -) 50 mg PO [facility] Last Admin: 08/24/17 21:56 Dose: 50 mg Ondansetron HCl (Zofran Injection) 4 mg IVPUSH Q6H PRN PRN Reason: NAUSEA Senna (Senna -) 2 tab PO [facility] Last Admin: 08/24/17 21:56 Dose: 2 tab Tamsulosin HCl (Flomax -) 0.4 mg PO DAILY@0830 [facility] Last Admin: 08/24/17 08:55 Dose: 0.4 mg Trazodone HCl (Desyrel -) 50 mg PO [facility] Last Admin: 08/24/17 21:55 Dose: 50 mg Warfarin Sodium 2 mg/ Warfarin (Sodium 5 mg) 7 mg PO DAILY@1800 [facility] Last Admin: 08/24/17 18:37 Dose: 7 mg - Objective Vital Signs: Vital Signs Temperature 98.5 F 08/24/17 21:26 Pulse Rate 51 L 08/24/17 21:26 Respiratory Rate 18 08/24/17 21:26 Blood Pressure 126/71 08/24/17 21:26 O2 Sat by Pulse Oximetry (%) 96 08/24/17 20:00 Labs: CBC, BMP 08/24/17 02:32 08/24/17 02:32 INR, PTT INR 1.98 (0.82-1.09) H D 08/24/17 07:45
[2017-08-25 08:29] LABS: PROTHROMBIN TIME (PATIENT) 22.6 SEC (9.98-11.88)
--- NOTE | 2017-08-25 08:53 | PN ---
Progress Note, Physician Chief Complaint: AWAITING URINE CULTURE NO COMPLAINTS - Current Medication List Current Medications: Active Medications Acetaminophen (Tylenol -) 650 mg PO Q4H PRN PRN Reason: PAIN OR FEVER Atorvastatin Calcium (Lipitor -) 20 mg PO [facility] Last Admin: 08/24/17 21:55 Dose: 20 mg Docusate Sodium (Colace -) 100 mg PO [facility] Last Admin: 08/24/17 21:55 Dose: 100 mg CEFTRIAXONE 1 G/50 ML PREMIX (Ceftriaxone 1 Gm-D5w Bag) 50 mls @ 200 mls/hr IVPB DAILY [facility] Sodium Chloride (Normal Saline -) 1,000 mls @ 83 mls/hr IV ASDIR [facility] Last Admin: 08/25/17 06:08 Dose: 83 mls/hr Latanoprost (Xalatan 0.005% Eye Drops -) 1 drop OU [facility] Last Admin: 08/24/17 21:56 Dose: 1 drop Metoprolol Succinate (Toprol Xl -) 50 mg PO [facility] Last Admin: 08/24/17 21:56 Dose: 50 mg Ondansetron HCl (Zofran Injection) 4 mg IVPUSH Q6H PRN PRN Reason: NAUSEA Senna (Senna -) 2 tab PO [facility] Last Admin: 08/24/17 21:56 Dose: 2 tab Tamsulosin HCl (Flomax -) 0.4 mg PO DAILY@0830 [facility] Last Admin: 08/24/17 08:55 Dose: 0.4 mg Trazodone HCl (Desyrel -) 50 mg PO [facility] Last Admin: 08/24/17 21:55 Dose: 50 mg Warfarin Sodium 2 mg/ Warfarin (Sodium 5 mg) 7 mg PO DAILY@1800 [facility] Last Admin: 08/24/17 18:37 Dose: 7 mg - Objective Vital Signs: Vital Signs Temperature 97.4 F L 08/25/17 06:00 Pulse Rate 53 L 08/25/17 06:00 Respiratory Rate 18 08/25/17 06:00 Blood Pressure 139/50 08/25/17 06:00 O2 Sat by Pulse Oximetry (%) 96 08/24/17 20:00 Constitutional: Yes: No Distress Eyes: Yes: WNL HENT: Yes: WNL Neck: Yes: WNL Cardiovascular: Yes: WNL Respiratory: Yes: WNL Gastrointestinal: Yes: WNL Genitourinary: Yes: WNL Musculoskeletal: Yes: WNL Extremities: Yes: WNL Edema: No Peripheral Pulses WNL: Yes Integumentary: Yes: WNL Wound/Incision: Yes: Clean/Dry Neurological: Yes: WNL ...Motor Strength: WNL Psychiatric: Yes: WNL Labs: CBC, BMP 08/24/17 02:32 08/24/17 02:32 INR, PTT INR 2.00 (0.82-1.09) H 08/25/17 07:15 Problem List - Problems (1) UTI (urinary tract infection) Code(s): N39.0 - URINARY TRACT INFECTION, SITE NOT SPECIFIED Qualifiers: Urinary tract infection type: acute cystitis Hematuria presence: with hematuria Qualified Code(s): N30.01 - Acute cystitis with hematuria Assessment/Plan AWAIT CULTURES CONTINUE IVF AND IV ABX FOR NOW OOB TO CHAIR INR THERAPEUTIC
[2017-08-25] MEDS: CEFTRIAXONE 1 G/50 ML PREMIX 50 ML IVPB SCH (09:21)
[2017-08-25] MEDS: TAMSULOSIN HCL 0.4 MG CAP.ER.24H (FP) PO SCH (09:21)
[2017-08-25] MEDS ORDERED: WARFARIN NA 2 MG TABLET (UD) ONE (17:57)
[2017-08-25] MEDS ORDERED: WARFARIN NA 5 MG TABLET (UD) ONE (17:57)
[2017-08-25] MEDS ORDERED: PT OWN MED DRAWER 7, Y5N ONE (17:58)
[2017-08-25] MEDS: WARFARIN NA 2 MG, WARFARIN NA 5 MG PO SCH (17:59)
[2017-08-25] MEDS: ATORVASTATIN CA 20 MG TABLET (FP) PO SCH (21:20)
[2017-08-25] MEDS: DOCUSATE SODIUM 100 MG CAPSULE (FP) PO SCH (21:20)
[2017-08-25] MEDS: traZODone HCL 50 MG TABLET (FP) PO SCH (21:21)
[2017-08-25] MEDS: SENNOSIDES 8.6MG TABLET (FP) PO SCH (21:29)
[2017-08-25] MEDS: LATANOPROST 0.005% OPHTH SOLN 2.5ML BOTTLE OU SCH (21:29)
[2017-08-26] MEDS: TAMSULOSIN HCL 0.4 MG CAP.ER.24H (FP) PO SCH (10:08)
[2017-08-26] MEDS: CEFTRIAXONE 1 G/50 ML PREMIX 50 ML IVPB SCH (10:09)
--- NOTE | 2017-08-26 12:57 | PN ---
Physical Exam: SUBJECTIVE: Patient seen and examined. He complains of difficulty swallowing and vomiting. He says he occasionally has this problem, depending on what he eats. OBJECTIVE: Vital Signs Period Temp Pulse Resp BP Sys/Saldaña Pulse Ox Last 24 Hr 97.2 F-98.7 F 52-58 18-18 106-134/51-73 97 GENERAL: The patient is awake, alert, and fully oriented, in no acute distress. LUNGS: Breath sounds equal, clear to auscultation bilaterally, no wheezes, no crackles, no accessory muscle use. HEART: Regular rate and rhythm, S1, S2 without murmur, rub or gallop. ABDOMEN: Soft, nontender, nondistended, normoactive bowel sounds, no guarding, no rebound, no hepatosplenomegaly, no masses. EXTREMITIES: 2+ pulses, warm, well-perfused, no edema. Active Medications Generic Name Dose Route Start Last Admin Trade Name Freq PRN Reason Stop Dose Admin Acetaminophen 650 mg 08/24/17 04:41 Tylenol - PO Q4H PRN PAIN OR FEVER Atorvastatin Calcium 20 mg 08/24/17 22:00 08/25/17 21:20 Lipitor - PO 20 mg HS [facility] Administration Docusate Sodium 100 mg 08/24/17 22:00 08/25/17 21:20 Colace - PO 100 mg HS [facility] Administration CEFTRIAXONE 1 G/50 ML PREMIX 50 mls @ 200 mls/hr 08/25/17 10:00 08/26/17 10: 09 Ceftriaxone 1 Gm-D5w Bag IVPB 200 mls/hr DAILY [facility] Administration Latanoprost 1 drop 08/24/17 22:00 08/25/17 21:29 Xalatan 0.005% Eye Drops - OU 1 drop HS [facility] Administration Metoprolol Succinate 50 mg 08/24/17 22:00 08/25/17 21:20 Toprol Xl - PO 50 mg HS [facility] Administration Ondansetron HCl 4 mg 08/24/17 04:41 Zofran Injection IVPUSH Q6H PRN NAUSEA Senna 2 tab 08/24/17 22:00 08/25/17 21:29 Senna - PO 2 tab HS [facility] Administration Tamsulosin HCl 0.4 mg 08/24/17 08:30 08/26/17 10:08 Flomax - PO 0.4 mg DAILY@0830 [facility] Administration Trazodone HCl 50 mg 08/24/17 22:00 08/25/17 21:21 Desyrel - PO 50 mg HS [facility] Administration Warfarin Sodium 2 mg/ Warfarin 7 mg 08/24/17 18:00 08/25/17 17:59 Sodium 5 mg PO 7 mg DAILY@1800 [facility] Administration ASSESSMENT/PLAN: This is an 87 year old man with a history of UTIs, CAD, CABG, HTN, hyperlipidemia, PAF, BPH who presented to the ED on 08/24 with foul-smelling urine and frequency of urination x 2 weeks. He was found to have 1+ protein, 1+ blood, 1+ leukocyte esterase, 355 WBC in his urine. 1. UTI, recurrent - Continue Rocephin pending results of urine culture 2. CAD, history of CABG - Continue Toprol XL, Lipitor 3. HTN - Continue Toprol XL 4. Hyperlipidemia - Continue Lipitor 5. Paroxysmal atrial fibrillation - Remains in sinus rhythm - Continue Toprol XL, Coumadin 6. BPH - Continue Flomax 7. Dysphagia and possible vomiting - Continue Zofran for nausea - Swallow evaluation Visit type - Emergency Visit Emergency Visit: Yes ED Registration Date: 08/25/17 Care time: The patient presented to the Emergency Department on the above date and was hospitalized for further evaluation of their emergent condition. - New Patient This patient is new to me today: No - Critical Care Critical Care patient: No - Discharge Referral Referred to [facility] Med P.C.: No
[2017-08-26 15:58] LABS: INR 1.89 (0.82-1.09); PROTHROMBIN TIME (PATIENT) 21.4 SEC (9.98-11.88)
[2017-08-26] MEDS ORDERED: WARFARIN NA 2 MG TABLET (UD) ONE (18:19)
[2017-08-26] MEDS ORDERED: WARFARIN NA 5 MG TABLET (UD) ONE (18:19)
[2017-08-26] MEDS: WARFARIN NA 2 MG, WARFARIN NA 5 MG PO SCH (18:21)
[2017-08-26] MEDS: SENNOSIDES 8.6MG TABLET (FP) PO SCH (21:12)
[2017-08-26] MEDS: traZODone HCL 50 MG TABLET (FP) PO SCH (21:12)
[2017-08-26] MEDS: DOCUSATE SODIUM 100 MG CAPSULE (FP) PO SCH (21:12)
[2017-08-26] MEDS: ATORVASTATIN CA 20 MG TABLET (FP) PO SCH (21:13)
[2017-08-26] MEDS: LATANOPROST 0.005% OPHTH SOLN 2.5ML BOTTLE OU SCH (23:33)
[2017-08-27 06:59] LABS: HEMATOCRIT 38.6 % (35.4-49); HEMOGLOBIN 12.1 GM/dL (11.7-16.9); MCH 27.2 pg (25.7-33.7); MCHC 31.3 g/dl (32.0-35.9); MEAN CELL VOLUME 86.9 fl (80-96); MEAN PLT VOLUME 9.1 fl (7.5-11.1); PLATELET COUNT 158 K/MM3 (134-434); RBC 4.44 M/mm3 (4.00-5.60); RDW 16.7 % (11.9-15.9); WHITE BLOOD COUNT 6.9 K/mm3 (4.0-10.0)
[2017-08-27 07:14] LABS: ANION GAP 6 (8-16); BLOOD UREA NITROGEN 18 mg/dL (7-18); CALCIUM 7.9 mg/dL (8.5-10.1); CHLORIDE 107 mmol/L (98-107); CO2 29 mmol/L (21-32); CREATININE 0.8 mg/dL (0.7-1.3); GLUCOSE,RANDOM 81 mg/dL (74-106); POTASSIUM 4.3 mmol/L (3.5-5.1); SODIUM 142 mmol/L (136-145)
[2017-08-27 07:29] LABS: INR 2.17 (0.82-1.09); PROTHROMBIN TIME (PATIENT) 24.5 SEC (9.98-11.88)
[2017-08-27] MEDS: TAMSULOSIN HCL 0.4 MG CAP.ER.24H (FP) PO SCH (09:38)
--- NOTE | 2017-08-27 14:23 | PN ---
Progress Note, Physician Chief Complaint: urine hesitancy and dysuria - Current Medication List Current Medications: Active Medications Acetaminophen (Tylenol -) 650 mg PO Q4H PRN PRN Reason: PAIN OR FEVER Atorvastatin Calcium (Lipitor -) 20 mg PO [facility] Last Admin: 08/26/17 21:13 Dose: 20 mg Docusate Sodium (Colace -) 100 mg PO [facility] Last Admin: 08/26/17 21:12 Dose: 100 mg CEFTRIAXONE 1 G/50 ML PREMIX (Ceftriaxone 1 Gm-D5w Bag) 50 mls @ 200 mls/hr IVPB DAILY [facility] Last Admin: 08/26/17 10:09 Dose: 200 mls/hr Latanoprost (Xalatan 0.005% Eye Drops -) 1 drop OU [facility] Last Admin: 08/26/17 23:33 Dose: 1 drop Metoprolol Succinate (Toprol Xl -) 50 mg PO [facility] Last Admin: 08/26/17 23:32 Dose: Not Given Ondansetron HCl (Zofran Injection) 4 mg IVPUSH Q6H PRN PRN Reason: NAUSEA Senna (Senna -) 2 tab PO [facility] Last Admin: 08/26/17 21:12 Dose: 2 tab Tamsulosin HCl (Flomax -) 0.4 mg PO DAILY@0830 [facility] Last Admin: 08/27/17 09:38 Dose: 0.4 mg Trazodone HCl (Desyrel -) 50 mg PO [facility] Last Admin: 08/26/17 21:12 Dose: 50 mg Warfarin Sodium 2 mg/ Warfarin (Sodium 5 mg) 7 mg PO DAILY@1800 [facility] Last Admin: 08/26/17 18:21 Dose: 7 mg - Objective Vital Signs: Vital Signs Temperature 98.6 F 08/27/17 06:00 Pulse Rate 63 08/27/17 06:00 Respiratory Rate 20 08/27/17 06:00 Blood Pressure 117/58 08/27/17 06:00 O2 Sat by Pulse Oximetry (%) 96 08/26/17 21:00 Constitutional: Yes: Well Nourished, No Distress, Calm Eyes: Yes: WNL, Conjunctiva Clear HENT: Yes: WNL, Atraumatic, Normocephalic Neck: Yes: WNL, Supple, Trachea Midline Cardiovascular: Yes: WNL, Pulse Irregular, S1, S2 Respiratory: Yes: WNL, Regular, CTA Bilaterally Gastrointestinal: Yes: WNL, Normal Bowel Sounds, Soft ...Rectal Exam: Yes: Deferred Genitourinary: Yes: WNL Labs: CBC, BMP 08/27/17 06:40 08/27/17 06:40 INR, PTT INR 2.17 (0.82-1.09) H 08/27/17 06:40 Problem List - Problems (1) BPH (benign prostatic hyperplasia) Assessment/Plan: complicated with UTI tamsulosin 0.4mg daily Code(s): N40.0 - BENIGN PROSTATIC HYPERPLASIA WITHOUT LOWER URINRY TRACT SYMP (2) UTI (urinary tract infection) Assessment/Plan: c/w ceftriaxone patient symptoms improved will await sensitivity and switch to PO Code(s): N39.0 - URINARY TRACT INFECTION, SITE NOT SPECIFIED Qualifiers: Urinary tract infection type: acute cystitis Hematuria presence: with hematuria Qualified Code(s): N30.01 - Acute cystitis with hematuria (3) CHF (congestive heart failure) Assessment/Plan: stable c.w medication Code(s): I50.9 - HEART FAILURE, UNSPECIFIED (4) Dyslipidemia Assessment/Plan: c/w atrovastatin 20mg daily Code(s): E78.5 - HYPERLIPIDEMIA, UNSPECIFIED (5) Sepsis secondary to UTI Code(s): A41.9 - SEPSIS, UNSPECIFIED ORGANISM; N39.0 - URINARY TRACT INFECTION, SITE NOT SPECIFIED (6) Afib Assessment/Plan: rate control c/w metoprolol xl 200mg c/w warfarin repeat INR daily Code(s): I48.91 - UNSPECIFIED ATRIAL FIBRILLATION (7) HTN (hypertension) Assessment/Plan: c/w metoprolol Code(s): I10 - ESSENTIAL (PRIMARY) HYPERTENSION (8) Urine retention Assessment/Plan: 2/2 enlarged prostate c/w tamsulosin Code(s): R33.9 - RETENTION OF URINE, UNSPECIFIED
[2017-08-27] MEDS: CEFTRIAXONE 1 G/50 ML PREMIX 50 ML IVPB SCH (15:00)
[2017-08-27] MEDS ORDERED: WARFARIN NA 5 MG TABLET (UD) ONE (17:00)
[2017-08-27] MEDS ORDERED: WARFARIN NA 2 MG TABLET (UD) ONE (17:00)
[2017-08-27] MEDS: WARFARIN NA 2 MG, WARFARIN NA 5 MG PO SCH (17:35)
[2017-08-27] MEDS: ATORVASTATIN CA 20 MG TABLET (FP) PO SCH (21:09)
[2017-08-27] MEDS: traZODone HCL 50 MG TABLET (FP) PO SCH (21:09)
[2017-08-27] MEDS: SENNOSIDES 8.6MG TABLET (FP) PO SCH (21:10)
[2017-08-27] MEDS: DOCUSATE SODIUM 100 MG CAPSULE (FP) PO SCH (21:10)
[2017-08-27] MEDS: LATANOPROST 0.005% OPHTH SOLN 2.5ML BOTTLE OU SCH (21:10)
[2017-08-28 07:11] LABS: ANION GAP 10 (8-16); BLOOD UREA NITROGEN 18 mg/dL (7-18); CALCIUM 8.8 mg/dL (8.5-10.1); CHLORIDE 102 mmol/L (98-107); CO2 27 mmol/L (21-32); CREATININE 0.9 mg/dL (0.7-1.3); GLUCOSE,RANDOM 91 mg/dL (74-106); POTASSIUM 4.5 mmol/L (3.5-5.1); SGOT/AST 13 U/L (15-37); SGPT/ALT 15 U/L (12-78); SODIUM 139 mmol/L (136-145)
[2017-08-28 07:13] LABS: ALK PHOS 95 U/L (45-117); BILIRUBIN,TOTAL 0.4 mg/dL (0.2-1.0); TOT PROT 6.8 g/dl (6.4-8.2)
[2017-08-28 07:15] LABS: INR 2.23 (0.82-1.09); PROTHROMBIN TIME (PATIENT) 25.2 SEC (9.98-11.88)
[2017-08-28] MEDS: TAMSULOSIN HCL 0.4 MG CAP.ER.24H (FP) PO SCH (08:17)
[2017-08-28] MEDS: CEFTRIAXONE 1 G/50 ML PREMIX 50 ML IVPB SCH (11:05)
--- NOTE | 2017-08-28 13:24 | DS ---
Physical Examination Vital Signs: Vital Signs Temperature 97.5 F L 08/28/17 10:44 Pulse Rate 59 L 08/28/17 09:00 Respiratory Rate 20 08/28/17 09:00 Blood Pressure 103/60 08/28/17 09:00 O2 Sat by Pulse Oximetry (%) 96 08/27/17 21:00 Constitutional: Yes: Calm Neck: Yes: Trachea Midline Cardiovascular: Yes: Regular Rate and Rhythm, S1, S2 Respiratory: Yes: CTA Bilaterally Gastrointestinal: Yes: Normal Bowel Sounds, Soft Edema: No Neurological: Yes: Alert, Oriented Labs: CBC, BMP 08/27/17 06:40 08/28/17 06:25 Discharge Summary Reason For Visit: URINARY TRACT INFECTION Current Active Problems BPH (benign prostatic hyperplasia) (Acute) UTI (urinary tract infection) (Acute) Hospital Course: PCP: Ana Paula Stephens CHIEF COMPLAINT: Foul-smelling urine HISTORY OF PRESENT ILLNESS: This is an 87 year old man with a history of UTIs who comes to the ER this morning at the advice of his son because he has been noticing foul-smelling urine and urinary frequency for about 2 weeks. He denies fever, chills, abdominal pain, back pain, flank pain, dysuria, hematuria, nausea. He had been admitted at [facility] in April 2017 for UTI and treated with Levaquin. He was seen in the ED here on 04/25 and admitted to [facility]. He was discharged from [facility] on 05/22 and seen in the ED here on 05/23 and again diagnosed with a UTI. He was treated with Keflex. Urine culture was contaminated. PAST MEDICAL HISTORY CAD HTN Hyperlipidemia PAF BPH UTIs PAST SURGICAL HISTORY CABG currently in hospital on iv rocephin and urine shows alpha hemolytic streptococcus awaiting sensitivities PAF On couamdin INR therapeutic BPH on flomax Condition: Stable - Instructions Referrals: Ana Paula Stephens MD [Primary Care Provider] - Disposition: HOME - Home Medications Comprehensive Discharge Medication List: Ambulatory Orders Atorvastatin Ca [Lipitor -] 20 mg PO HS 02/25/14 Docusate Sodium [Colace] 100 mg PO HS 02/25/14 Metoprolol Succinate [Toprol Xl] 50 mg PO HS 02/25/14 traZODone HCL [Desyrel -] 50 mg PO HS 02/25/14 Sennosides [Senna] 2 tab PO HS 04/24/17 Tamsulosin HCl [Flomax] 0.4 mg PO DAILY 04/24/17 Warfarin Na [Coumadin] 0 mg PO DAILY 04/24/17 Levofloxacin [Levaquin] 500 mg PO DAILY #2 tablet 04/25/17
--- NOTE | 2017-08-28 18:14 | CONSULT ---
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: CVA Cardiovascular: Yes: AFIB (paroxysmal), CAD, HTN, Hyperlipdemia Renal/: Yes: Renal Inusuff, BPH Endocrine: Yes: Hypothyroidism - Past Surgical History Past Surgical History: Yes: CABG - Advance Directives Advance Directives: Yes: Living Will, Health Care Proxy - Smoking History Smoking history: Never smoked Have you smoked in the past 12 months: No - Alcohol/Substance Use Hx Alcohol Use: No History - Admission Reason For Visit: URINARY TRACT INFECTION - Hearing Hearing: Normal Hearing Aide: No Speech Evaluation - Communication Primary Language: ARMENIAN Communication: Yes: Within Normal Limits Oral Expression Ability: Yes: No Impairment - Speech Production Apraxia: No Able to Make Needs Known: Yes: WNL Intelligibility: Yes: WNL - Speech Characteristics Voice Loudness: Normal Voice Pitch: Yes: Normal Voice Phonatory-based Quality: Yes: Normal Speech Pattern: Normal Nasal Resonance: Normal Articulation: Yes: Precise Rate of Speech: Intact - Language/Auditory Comprehension Follows: Yes: Complex Commands (WFL) Observation: Able to respond to yes/no queries: Yes, Yes/No Confusion: No, Comprehends Conversational Speech: Yes, Benefits from Slow Speech: No, Benefits from Repetiton: No, Benefits from Increased Volume of Speech: No - Language/Verbal Expression Able to Communicate Wants and Needs: Yes: WNL Functional Communication Status: Yes: WNL Aware of Errors: Yes Attempts to Correct Errors: Yes Use of Gestures: No Written Expression: WFL Oral Expression: WFL Reading Comprehension: WFL Attention: Yes: Intact - 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: WNL Short Term Memory: Yes: WNL - Swallow Evaluation/Bedside Assessment Current Nutritional Intake: Regular (Sodium controlled), Thin Liquids Oral Secretions: Yes: WFL Tracheostomy Present: No Patient on Ventilator: No Dentition: Yes: Edentulous, Missing Teeth Facial Symmetry at Rest: Symmetrical Facial Symmetry on Retraction: Symmetrical Facial Movement: Controlled Sensation: Normal Facial Comment: WFL for speech and swallowing Jaw Position: Closed at Rest Against Resistance Opening: Normal Against Resistance Closing: Normal Pucker Lips: Normal Smile: Normal Lips, Comment: WFL for speech and swallowing Lingual Movement: Normal Lingual Speed of Movement: Normal Lingual Movement Strgth Against Opposition: Normal Lingual Movement Characteristics: Normal Lingual Comment: WFL for speech and swallowing Soft Palate Description: Normal Color Hard Palate Description: Normal Color Gag Reflex: Strong Bite Reflex: Present Velopharyngeal Movement: Normal Laryngeal Elevation: WFL Laryngeal Movement: Able to Palpate Needs Assistance: No Rate of Intake: WFL Bolus Size: WFL Labial Seal: WFL Chewing: WFL Oral Prep Time: WFL A-P Transit: WFL Pocketing: None Timing of Swallow: WFL Coughing/Throat Clear: No Change in Voice: No Other Findings/Remarks: 87 yo male seen on unit for swallow eval to rule out dysphagia. Pt is verbal A& OX3 cooperative. Pt PHMX includes CAD, HTN, PAF, BPH and frequent UTI. Good airway protection and voicing WFL. Current diet regular Na controlled with thin liquids. Pt observed during dinner OOB without assistance for meal was unremarkable for dysphagia and or aspiration at this time. Recommendations - Speech Evaluation, Impression/Plan Impression: Pt present with adequate speech and language skills. No dysphagia and /or aspiration-like behaviors during meals at this time. Blueprinter Goals: tolerate the least restrictive diet without s/s of aspiration. Short Term Goals: tolerate the least restrictive diet without s/s of aspiration. - Dysphagia Impressions/Plan Swallowing Skills: WF Dysphagia Impressions: No Impairment, Moderate Impairment Dysphagia Treatment Plan: Safe Rate, Elevate HOB during feed, OOB for meals, OOB for 1 h. after meals, Other (Monitor pulmonary status and nutritional intake.) Dysphagia Evaluation Summary: This patient is able to tolerate pureed, soft and regular (Na controlled) solids and thin liquids without s/s of aspiration at this time. Results given to charge managerDOMINICK Schmidt and to pcp via chart. - Recommendations Diet Consistency: Regular Medication Administration: Whole with water Liquids: Thin Liquids
[2017-08-28] MEDS ORDERED: WARFARIN NA 2 MG TABLET (UD) ONE (18:21)
[2017-08-28] MEDS ORDERED: WARFARIN NA 5 MG TABLET (UD) ONE (18:21)
[2017-08-28] MEDS: WARFARIN NA 2 MG, WARFARIN NA 5 MG PO SCH (18:24)
[2017-08-28] MEDS: SENNOSIDES 8.6MG TABLET (FP) PO SCH (21:43)
[2017-08-28] MEDS: traZODone HCL 50 MG TABLET (FP) PO SCH (21:44)
[2017-08-28] MEDS: DOCUSATE SODIUM 100 MG CAPSULE (FP) PO SCH (21:44)
[2017-08-28] MEDS: ATORVASTATIN CA 20 MG TABLET (FP) PO SCH (21:44)
[2017-08-28] MEDS: LATANOPROST 0.005% OPHTH SOLN 2.5ML BOTTLE OU SCH (21:47)
[2017-08-29 07:10] VITALS: TEMP 97.9
[2017-08-29] MEDS: TAMSULOSIN HCL 0.4 MG CAP.ER.24H (FP) PO SCH (08:19)
[2017-08-29] MEDS: CEFTRIAXONE 1 G/50 ML PREMIX 50 ML IVPB SCH ×2 (09:54→10:03)
--- NOTE | 2017-08-29 10:32 | PN ---
Progress Note, Physician Chief Complaint: patient seen and examined will send home today' no fever wbc - Current Medication List Current Medications: Active Medications Acetaminophen (Tylenol -) 650 mg PO Q4H PRN PRN Reason: PAIN OR FEVER Atorvastatin Calcium (Lipitor -) 20 mg PO [facility] Last Admin: 08/28/17 21:44 Dose: 20 mg Docusate Sodium (Colace -) 100 mg PO [facility] Last Admin: 08/28/17 21:44 Dose: 100 mg CEFTRIAXONE 1 G/50 ML PREMIX (Ceftriaxone 1 Gm-D5w Bag) 50 mls @ 200 mls/hr IVPB DAILY [facility] Last Admin: 08/29/17 10:03 Dose: Not Given Latanoprost (Xalatan 0.005% Eye Drops -) 1 drop OU [facility] Last Admin: 08/28/17 21:47 Dose: 1 drop Metoprolol Succinate (Toprol Xl -) 50 mg PO [facility] Last Admin: 08/28/17 21:44 Dose: 50 mg Ondansetron HCl (Zofran Injection) 4 mg IVPUSH Q6H PRN PRN Reason: NAUSEA Senna (Senna -) 2 tab PO [facility] Last Admin: 08/28/17 21:43 Dose: 2 tab Tamsulosin HCl (Flomax -) 0.4 mg PO DAILY@0830 [facility] Last Admin: 08/29/17 08:19 Dose: 0.4 mg Trazodone HCl (Desyrel -) 50 mg PO [facility] Last Admin: 08/28/17 21:44 Dose: 50 mg Warfarin Sodium 2 mg/ Warfarin (Sodium 5 mg) 7 mg PO DAILY@1800 [facility] Last Admin: 08/28/17 18:24 Dose: 7 mg - Objective Vital Signs: Vital Signs Temperature 97.9 F 08/29/17 06:00 Pulse Rate 56 L 08/29/17 06:00 Respiratory Rate 20 08/29/17 06:00 Blood Pressure 108/49 08/29/17 06:00 O2 Sat by Pulse Oximetry (%) 95 08/28/17 22:00 Constitutional: Yes: Calm Neck: Yes: Trachea Midline Cardiovascular: Yes: Regular Rate and Rhythm, S1, S2 Respiratory: Yes: CTA Bilaterally Gastrointestinal: Yes: Normal Bowel Sounds, Soft Edema: No Neurological: Yes: Alert, Oriented Labs: CBC, BMP 08/27/17 06:40 08/28/17 06:25 INR, PTT INR 2.23 (0.82-1.09) H 08/28/17 06:25 Problem List - Problems (1) BPH (benign prostatic hyperplasia) Assessment/Plan: flomax Code(s): N40.0 - BENIGN PROSTATIC HYPERPLASIA WITHOUT LOWER URINRY TRACT SYMP (2) UTI (urinary tract infection) Assessment/Plan: iv rocephin to keflex 500mg po bid for 4 days Code(s): N39.0 - URINARY TRACT INFECTION, SITE NOT SPECIFIED Qualifiers: Urinary tract infection type: acute cystitis Hematuria presence: with hematuria Qualified Code(s): N30.01 - Acute cystitis with hematuria (3) CAD (coronary artery disease) Assessment/Plan: statin and BB Code(s): I25.10 - ATHSCL HEART DISEASE OF [place] CORONARY ARTERY W/O ANG PCTRS (4) Afib Assessment/Plan: warfarin inr is therepautic BB for rate control Code(s): I48.91 - UNSPECIFIED ATRIAL FIBRILLATION (5) HTN (hypertension) Assessment/Plan: BB Code(s): I10 - ESSENTIAL (PRIMARY) HYPERTENSION
[2017-08-29] MEDS ORDERED: CEPHALEXIN MONOHYDRATE 500 MG CAPSULE (UD) PO ONE (11:00)
[2017-08-29 12:17] VITALS: BP 129/68; PULSE 59
== END 2017-08-29 11:41 | disposition home or self-care (01) | DRG 690 ==
LOC: JER 01:26 → JERBED 03:46 → INTOOBSV 03:46 → UNDOADMOB 03:46 → JERBED 04:41 → J5S 06:38 → OBSVTOIN 08-25 14:42 → J5S 08-26 19:38
PROVIDERS: ADMIT Internal Medicine; ATTEND Family Medicine
DX: N39.0 Urinary tract infection, site not specified (principal); E78.5 Hyperlipidemia, unspecified; I25.10 Atherosclerotic heart disease of native coronary artery without angina pectoris; N40.0 Benign prostatic hyperplasia without lower urinary tract symptoms; Z95.1 Presence of aortocoronary bypass graft; Z87.891 Personal history of nicotine dependence; I48.0 Paroxysmal atrial fibrillation; R13.10 Dysphagia, unspecified; R33.9 Retention of urine, unspecified; I11.0 Hypertensive heart disease with heart failure; I50.9 Heart failure, unspecified
CPT/HCPCS: 36415; 71045-TC-FY; 80048; 80053; 81003; 81015; 85025; 85027; 85610; 85730; 87086; 90688; 93005; 93010; 97116-GP; 97161-GP; 99282-25; G0008; G0378; J7030

== ENCOUNTER 2017-09-22 14:29 | Observation (INO) | payer OTHER, BC ==
--- NOTE | 2017-09-22 15:17 | PDOC ---
History of Present Illness - General Chief Complaint: Cold Symptoms Stated Complaint: Diarrhea Time Seen by Provider: 09/22/17 15:17 - History of Present Illness Initial Comments: The patient is an 87 year old male with a history of HTN, HLD, CAD, Afib, and recent UTI (admitted 1 month prior for this) presenting with weakness and productive cough for the past 3 days in the setting of 3 weeks of light cough. Patient was hospitalized one month prior for a UTI which was successfully treated and discharged home. He admits to some diarrhea over the past three days as well (approx 1 time per day). Denies any urinary symptoms, measured fevers, nausea, vomiting, chest pain, or SOB. He walks at home with a rolling walker. His son called EMS today because of his condition although the patient believes that he is improved today. 09/22/17 15:19 Past History - Past Medical History Allergies/Adverse Reactions: Allergies Allergy/AdvReac Type Severity Reaction Status Date / Time No Known Allergies Allergy Verified 09/22/17 14:57 Home Medications: Ambulatory Orders Atorvastatin Ca [Lipitor -] 20 mg PO HS 02/25/14 Docusate Sodium [Colace] 100 mg PO HS 02/25/14 Metoprolol Succinate [Toprol Xl] 50 mg PO HS 02/25/14 traZODone HCL [Desyrel -] 50 mg PO HS 02/25/14 Sennosides [Senna] 2 tab PO HS 04/24/17 Tamsulosin HCl [Flomax -] 0.4 mg PO DAILY 04/24/17 Warfarin Na [Coumadin -] 7 mg PO DAILY@1800 tablet 08/29/17 Furosemide [Lasix] 40 mg PO BID 09/22/17 Latanoprost 0.005% Eye Drops [Xalatan 0.005% Eye Drops -] 1 drop HS 09/22/17 Cardiac Disorders: Yes (CABG) CVA: Yes (right sided weakness) COPD: No Dementia: No Disorders: Yes (RECURRENT UTIS) HTN: Yes Hypercholesterolemia: Yes - Surgical History Abdominal Surgery: No Appendectomy: No Cardiac Surgery: Yes (cabg) Cholecystectomy: No Lung Surgery: No Neurologic Surgery: No Orthopedic Surgery: No - Suicide/Smoking/Psychosocial Hx Smoking History: Former smoker Have you smoked in the past 12 months: No Information on smoking cessation initiated: No Hx Alcohol Use: No Drug/Substance Use Hx: No Substance Use Type: None Hx Substance Use Treatment: No Review of Systems - Review of Systems Constitutional: No: Chills, Diaphoresis, Fever HEENTM: Yes: Nose Congestion. No: Recent change in vision Respiratory: Yes: Cough, Productive cough. No: Shortness of Breath, Hemoptysis Cardiac (ROS): No: Lightheadedness, Palpitations, Syncope ABD/GI: Yes: Diarrhea. No: Constipated, Nausea, Vomiting : No: Burning, Dysuria, Discharge Musculoskeletal: No: Back Pain, Muscle Weakness Integumentary: No: Bruising, Lesions Neurological: No: Headache, Numbness *Physical Exam - Vital Signs Last Vital Signs Temp Pulse Resp BP Pulse Ox 100.2 F H 64 18 124/81 97 09/22/17 14:57 09/22/17 14:57 09/22/17 14:57 09/22/17 14:57 09/22/17 14:57 - Physical Exam General Appearance: Yes: Nourished, Appropriately Dressed. No: Apparent Distress HEENT: positive: EOMI, COLIN, Normal Voice. negative: Normal ENT Inspection ( nasal congestion) Neck: positive: Trachea midline, Normal Thyroid, Supple. negative: Tender, Rigid Respiratory/Chest: negative: Chest Tender, Lungs Clear, Normal Breath Sounds ( coarse breath sounds in left mid and lower lung field), Respiratory Distress, Accessory Muscle Use ED Treatment Course - LABORATORY CBC & Chemistry Diagram: 09/22/17 15:55 09/22/17 15:55 Medical Decision Making - Medical Decision Making 87 year old male presenting with fever and respiratory 09/22/17 17:55 *DC/Admit/Observation/Transfer - Referrals Referrals: Ana Paula Stephens MD [Primary Care Provider] - - Patient Instructions - Post Discharge Activity
[2017-09-22 16:37] LABS: BASO % 0.3 % (0-2.0); EOS % 0.4 % (0-4.5); HEMATOCRIT 41.8 % (35.4-49); HEMOGLOBIN 13.8 GM/dL (11.7-16.9); LYMPH % 3.9 % (8-40); MCH 28.8 pg (25.7-33.7); MEAN CELL VOLUME 87.3 fl (80-96); MEAN PLT VOLUME 9.1 fl (7.5-11.1); NEUT % 88.4 % (42.8-82.8); PLATELET COUNT 144 K/MM3 (134-434); RBC 4.79 M/mm3 (4.00-5.60); RDW 15.8 % (11.9-15.9); WHITE BLOOD COUNT 9.8 K/mm3 (4.0-10.0)
[2017-09-22 16:48] LABS: VENOUS PC02 52.7 mmHg (38-52); VENOUS PH 7.34 (7.32-7.42); VENOUS PO2 26.6 mmHg (28-48)
[2017-09-22 17:05] LABS: ALBUMIN 3.2 g/dl (3.4-5.0); ANION GAP 10 (8-16); BLOOD UREA NITROGEN 11 mg/dL (7-18); CALCIUM 8.2 mg/dL (8.5-10.1); CHLORIDE 101 mmol/L (98-107); CO2 28 mmol/L (21-32); GLUCOSE,RANDOM 83 mg/dL (74-106); POTASSIUM 4.3 mmol/L (3.5-5.1); SODIUM 139 mmol/L (136-145)
[2017-09-22 17:10] LABS: ALK PHOS 93 U/L (45-117); BILIRUBIN,TOTAL 0.8 mg/dL (0.2-1.0); CREATININE 1.1 mg/dL (0.7-1.3); LDH 210 U/L (87-241); N-TERMINAL BNP 1836.75 pg/ml (5-450); SGOT/AST 15 U/L (15-37); SGPT/ALT 15 U/L (12-78); TOT PROT 6.8 g/dl (6.4-8.2)
[2017-09-22] MEDS ORDERED: ALBUTEROL SO4 2.5/IPRATROPIUM 0.5 INH SOL 3 ML VIAL.NEB. NEB ONE ×3 (17:13→20:10)
[2017-09-22] MEDS ORDERED: ACETAMINOPHEN 1000 MG/100 ML VIAL (NON FORMULARY) IVPB ONE (17:13)
--- NOTE | 2017-09-22 17:34 | PDOC ---
Attending Attestation - Resident Resident Name: Ross Weeks - ED Attending Attestation I have performed the following: I have examined & evaluated the patient, The case was reviewed & discussed with the resident, I agree w/resident's findings & plan, Exceptions are as noted - HPI HPI: 09/22/17 17:31 87-year-old male with a history of prior tobacco use quit 30 years ago hypertension hyperlipidemia and recent UTI 1 month ago here today complaining of cough and congestion for the last few days. Patient states he has had decreased by mouth intake does feel like he has had chills denies chest pain denies leg swelling no abdominal pain and no nausea or vomiting - Physicial Exam PE: 09/22/17 17:32 Awake alert no acute distress lungs with decreased breath sounds and rhonchorous wheezing bilaterally normal effort cardiac exam normal rate and rhythm no murmurs rubs or gallops abdomen is soft and nontender skin is warm and dry extremities are warm well perfused no edema neuro alert and oriented 3 moves all extremities facies symmetric - Medical Decision Making 09/22/17 17:33 87-year-old male with a history of tobacco use hypertension hyperlipidemia here today with cough congestion as well as loose watery stool Differential includes pneumonia, viral bronchitis, chronic bronchitis with exacerbation, hyponatremia or other electrolyte abnormality, dehydration, plan IV hydration chest x-ray DuoNeb. Patient is noted to be hypoxic at 93-94% therefore likely require admission difficulty having urination in the ED therefore straight catheter attempted which resulted in bloody discharge we'll consult urology for difficulty with urination inability to pass catheter
[2017-09-22] MEDS ORDERED: SODIUM CHLORIDE 0.9% 500 ML INFUS.BAG IV ONE (17:35)
[2017-09-22] MEDS ORDERED: ACETAMINOPHEN INJECTION 100 ML IVPB ONE (17:38)
[2017-09-22] MEDS ORDERED: methylPREDNISolone NA SUCC 125 MG/2 ML VIAL IVPB ONE (17:53)
[2017-09-22 17:57] LABS: URINE APPEARANCE CLOUDY; URINE BILIRUBIN NEGATIVE (<2.0 mg/dL); URINE BLOOD 3+ (NEGATIVE); URINE COLOR AMBER; URINE GLUCOSE (UA) NEGATIVE (NEGATIVE); URINE KETONE NEGATIVE (NEGATIVE); URINE LEUK ESTERASE NEGATIVE (NEGATIVE); URINE NITRITE NEGATIVE (NEGATIVE); URINE PROTEIN NEGATIVE (NEGATIVE); URINE UROBILINOGEN NEGATIVE mg/dL (0.2-1.0)
[2017-09-22] MEDS ORDERED: methylPREDNISolone NA SUCC 125 MG/2 ML VIAL ONE ×2 (18:00→18:01)
[2017-09-22 18:10] LABS: INR 3.18 (0.82-1.09); PROTHROMBIN TIME (PATIENT) 35.9 SEC (9.98-11.88)
[2017-09-22] MEDS: ALBUTEROL SO4 2.5/IPRATROPIUM 0.5 INH SOL 3 ML VIAL.NEB. NEB SCH (20:12)
[2017-09-22] MEDS ORDERED: AZITHROMYCIN IVPB 500 MG in DEXTROSE 5%-WATER - 250 ML IVPB ONE (20:14)
--- NOTE | 2017-09-22 20:15 | HP ---
CHIEF COMPLAINT: PCP: HISTORY OF PRESENT ILLNESS: ER course was notable for: (1) (2) (3) Recent Travel: PAST MEDICAL HISTORY: PAST SURGICAL HISTORY: Social History: Smoking: Alcohol: Drugs: Family History: Allergies No Known Allergies Allergy (Verified 09/22/17 14:57) HOME MEDICATIONS: Home Medications Medication Instructions Recorded Atorvastatin Ca [Lipitor -] 20 mg PO HS 02/25/14 Docusate Sodium [Colace] 100 mg PO HS 02/25/14 Metoprolol Succinate [Toprol Xl] 50 mg PO HS 02/25/14 traZODone HCL [Desyrel -] 50 mg PO HS 02/25/14 Sennosides [Senna] 2 tab PO HS 04/24/17 Tamsulosin HCl [Flomax -] 0.4 mg PO DAILY 04/24/17 Warfarin Na [Coumadin -] 7 mg PO DAILY@1800 tablet 08/29/17 Furosemide [Lasix] 40 mg PO BID 09/22/17 Latanoprost 0.005% Eye Drops 1 drop HS 09/22/17 [Xalatan 0.005% Eye Drops -] REVIEW OF SYSTEMS CONSTITUTIONAL: Absent: fever, chills, diaphoresis, generalized weakness, malaise, loss of appetite, weight change HEENT: Absent: rhinorrhea, nasal congestion, throat pain, throat swelling, difficulty swallowing, mouth swelling, ear pain, eye pain, visual changes CARDIOVASCULAR: Absent: chest pain, syncope, palpitations, irregular heart rate, lightheadedness , peripheral edema RESPIRATORY: Absent: cough, shortness of breath, dyspnea with exertion, orthopnea, wheezing, stridor, hemoptysis GASTROINTESTINAL: Absent: abdominal pain, abdominal distension, nausea, vomiting, diarrhea, constipation, melena, hematochezia GENITOURINARY: Absent: dysuria, frequency, urgency, hesitancy, hematuria, flank pain, genital pain MUSCULOSKELETAL: Absent: myalgia, arthralgia, joint swelling, back pain, neck pain SKIN: Absent: rash, itching, pallor HEMATOLOGIC/IMMUNOLOGIC: Absent: easy bleeding, easy bruising, lymphadenopathy, frequent infections ENDOCRINE: Absent: unexplained weight gain, unexplained weight loss, heat intolerance, cold intolerance NEUROLOGIC: Absent: headache, focal weakness or paresthesias, dizziness, unsteady gait, seizure, mental status changes, bladder or bowel incontinence PSYCHIATRIC: Absent: anxiety, depression, suicidal or homicidal ideation, hallucinations. PHYSICAL EXAMINATION Vital Signs - 24 hr 09/22/17 09/22/17 09/22/17 14:57 15:45 17:32 Temperature 100.2 F H 101.0 F H Pulse Rate 64 Pulse Rate [ Right] Respiratory 18 Rate Blood Pressure 124/81 Blood Pressure [Right Arm] O2 Sat by Pulse 97 97 Oximetry (%) 09/22/17 09/22/17 09/22/17 18:53 20:00 20:08 Temperature 99.0 F Pulse Rate Pulse Rate [ 78 Right] Respiratory 18 Rate Blood Pressure Blood Pressure 122/74 [Right Arm] O2 Sat by Pulse 98 93 L 97 Oximetry (%) GENERAL: Awake, alert, and fully oriented, in no acute distress. HEAD: Normal with no signs of trauma. EYES: Pupils equal, round and reactive to light, extraocular movements intact, sclera anicteric, conjunctiva clear. No lid lag. EARS, NOSE, THROAT: Ears normal, nares patent, oropharynx clear without exudates. Moist mucous membranes. NECK: Normal range of motion, supple without lymphadenopathy, JVD, or masses. LUNGS: Breath sounds equal, clear to auscultation bilaterally. No wheezes, and no crackles. No accessory muscle use. HEART: Regular rate and rhythm, normal S1 and S2 without murmur, rub or gallop. ABDOMEN: Soft, nontender, not distended, normoactive bowel sounds, no guarding, no rebound, no masses. No hepatomegaly or splenomegaly. MUSCULOSKELETAL: Normal range of motion at all joints. No bony deformities or tenderness. No CVA tenderness. UPPER EXTREMITIES: 2+ pulses, warm, well-perfused. No cyanosis. No clubbing. No peripheral edema. LOWER EXTREMITIES: 2+ pulses, warm, well-perfused. No calf tenderness. No peripheral edema. NEUROLOGICAL: Cranial nerves II-XII intact. Normal speech. Normal gait. PSYCHIATRIC: Cooperative. Good eye contact. Appropriate mood and affect. SKIN: Warm, dry, normal turgor, no rashes or lesions noted, normal capillary refill. Laboratory Results - last 24 hr 09/22/17 09/22/17 09/22/17 15:55 15:55 15:55 WBC 9.8 D RBC 4.79 Hgb 13.8 D Hct 41.8 MCV 87.3 MCH 28.8 MCHC 33.0 RDW 15.8 Plt Count 144 MPV 9.1 Neutrophils % 88.4 H Lymphocytes % 3.9 L D Monocytes % 7.0 Eosinophils % 0.4 D Basophils % 0.3 PT with INR INR VBG pH 7.34 POC VBG pCO2 52.7 H POC VBG pO2 26.6 L Mixed VBG HCO3 27.7 H Sodium 139 Potassium 4.3 Chloride 101 Carbon Dioxide 28 Anion Gap 10 BUN 11 D Creatinine 1.1 D Creat Clearance w eGFR > 60 Random Glucose 83 Lactic Acid Calcium 8.2 L Total Bilirubin 0.8 D AST 15 ALT 15 Alkaline Phosphatase 93 LD Total 210 B-Natriuretic Peptide 1836.75 H Total Protein 6.8 Albumin 3.2 L Urine Color Urine Appearance Urine pH Ur Specific [place] Urine Protein Urine Glucose (UA) Urine Ketones Urine Blood Urine Nitrite Urine Bilirubin Urine Urobilinogen Ur Leukocyte Esterase Urine WBC (Auto) Urine RBC (Auto) 09/22/17 09/22/17 09/22/17 15:55 17:33 17:44 WBC RBC Hgb Hct MCV MCH MCHC RDW Plt Count MPV Neutrophils % Lymphocytes % Monocytes % Eosinophils % Basophils % PT with INR 35.90 H INR 3.18 H D VBG pH POC VBG pCO2 POC VBG pO2 Mixed VBG HCO3 Sodium Potassium Chloride Carbon Dioxide Anion Gap BUN Creatinine Creat Clearance w eGFR Random Glucose Lactic Acid 1.0 Calcium Total Bilirubin AST ALT Alkaline Phosphatase LD Total B-Natriuretic Peptide Total Protein Albumin Urine Color Maki Urine Appearance Cloudy Urine pH 6.0 D Ur Specific [place] 1.023 Urine Protein Negative Urine Glucose (UA) Negative Urine Ketones Negative Urine Blood 3+ H Urine Nitrite Negative Urine Bilirubin Negative Urine Urobilinogen Negative Ur Leukocyte Esterase Negative Urine WBC (Auto) None Urine RBC (Auto) None ASSESSMENT/PLAN: Hospitalist Screening - Colonoscopy Questionnaire Colonoscopy Questionnaire: Colonoscopy Questionnaire
[2017-09-22] MEDS: CEFTRIAXONE 1 GM/50 ML BAG IVPB SCH (21:03)
[2017-09-22 21:31] VITALS: BMI 31.6
[2017-09-22] MEDS: traZODone HCL 50 MG TABLET (FP) PO SCH (22:16)
[2017-09-22] MEDS: ATORVASTATIN CA 20 MG TABLET (FP) PO SCH (22:16)
[2017-09-22] MEDS: DOCUSATE SODIUM 100 MG CAPSULE (FP) PO SCH (22:16)
[2017-09-22] MEDS: SENNOSIDES 8.6MG TABLET (FP) PO SCH (22:16)
[2017-09-22] MEDS: LATANOPROST 0.005% OPHTH SOLN 2.5ML BOTTLE OU SCH (23:03)
--- NOTE | 2017-09-22 23:32 | HP ---
CHIEF COMPLAINT: Cough, SOB, sore throat PCP: Angelo HISTORY OF PRESENT ILLNESS: This is an 87 year old male with a past medical history significant for CAD s/p CABG, HTN, HLD who presented to the ED with mild cough x a few weeks, worsening over past 3 days. Pt also c/o sore throat and hoarse voice. Denies palpitations or chest pain. Pt reports that he has not been taking his lasix because it makes him urinate too frequently and his legs weren't swollen ER course was notable for: (1) CXR without acute findings (2) BNP 1836, no prior in computer (3) WBC 9.8 with 88% neutx Recent Travel: pt denies PAST MEDICAL HISTORY: CAD, HLD, afib, recurrent UTI, CVA r sided weakness, BPH PAST SURGICAL HISTORY: CABG Social History: Smoking: quit 25y ago, previous pipe smoker Alcohol: pt denies Drugs: pt denies Family History: mother age 80, rectal CA father age 70, emphysema sister age 70, unkown Allergies No Known Allergies Allergy (Verified 09/22/17 14:57) HOME MEDICATIONS: 3 Medication Instructions Recorded Atorvastatin Ca [Lipitor -] 20 mg PO HS 02/25/14 Docusate Sodium [Colace] 100 mg PO HS 02/25/14 Metoprolol Succinate [Toprol Xl] 50 mg PO HS 02/25/14 traZODone HCL [Desyrel -] 50 mg PO HS 02/25/14 Sennosides [Senna] 2 tab PO HS 04/24/17 Tamsulosin HCl [Flomax -] 0.4 mg PO DAILY 04/24/17 Warfarin Na [Coumadin -] 7 mg PO DAILY@1800 tablet 08/29/17 Furosemide [Lasix] 40 mg PO BID 09/22/17 Latanoprost 0.005% Eye Drops 1 drop HS 09/22/17 [Xalatan 0.005% Eye Drops -] REVIEW OF SYSTEMS CONSTITUTIONAL: Absent: fever, chills, diaphoresis, generalized weakness, malaise, loss of appetite, weight change HEENT: Absent: rhinorrhea, nasal congestion, throat pain, throat swelling, difficulty swallowing, mouth swelling, ear pain, eye pain, visual changes CARDIOVASCULAR: Absent: chest pain, syncope, palpitations, irregular heart rate, lightheadedness , peripheral edema RESPIRATORY: Present: cough, shortness of breath Absent: dyspnea with exertion, orthopnea, wheezing, stridor, hemoptysis GASTROINTESTINAL: Absent: abdominal pain, abdominal distension, nausea, vomiting, diarrhea, constipation, melena, hematochezia GENITOURINARY: Absent: dysuria, frequency, urgency, hesitancy, hematuria, flank pain, genital pain MUSCULOSKELETAL: Absent: myalgia, arthralgia, joint swelling, back pain, neck pain SKIN: Absent: rash, itching, pallor HEMATOLOGIC/IMMUNOLOGIC: Absent: easy bleeding, easy bruising, lymphadenopathy, frequent infections ENDOCRINE: Absent: unexplained weight gain, unexplained weight loss, heat intolerance, cold intolerance NEUROLOGIC: Absent: headache, focal weakness or paresthesias, dizziness, unsteady gait, seizure, mental status changes, bladder or bowel incontinence PSYCHIATRIC: Absent: anxiety, depression, suicidal or homicidal ideation, hallucinations. PHYSICAL EXAMINATION Vital Signs - 24 hr 3 09/22/17 09/22/17 14:57 17:32 18:53 Temperature 100.2 F H 101.0 F H 99.0 F Pulse Rate 64 Pulse Rate [ 78 Right] Respiratory 18 18 Rate Blood Pressure 124/81 Blood Pressure 122/74 [Right Arm] O2 Sat by Pulse 97 98 Oximetry (%) 3 09/22/17 09/22/17 20:51 21:14 Temperature 98.9 F 98.9 F Pulse Rate 82 82 Pulse Rate [ Right] Respiratory 18 18 Rate Blood Pressure 101/56 101/56 Blood Pressure [Right Arm] O2 Sat by Pulse 98 98 Oximetry (%) GENERAL: Awake, alert, and fully oriented, in no acute distress. HEAD: Normal with no signs of trauma. EYES: Pupils equal, round and reactive to light, extraocular movements intact, sclera anicteric, conjunctiva clear. No lid lag. EARS, NOSE, THROAT: Ears normal, nares patent, oropharynx clear without exudates. Moist mucous membranes. NECK: Normal range of motion, supple without lymphadenopathy, JVD, or masses. LUNGS: Expiratory wheezing bilat, diminished bilat bases. No accessory muscle use. HEART: Regular rate and rhythm, normal S1 and S2 without murmur, rub or gallop. ABDOMEN: Soft, nontender, not distended, normoactive bowel sounds, no guarding, no rebound, no masses. No hepatomegaly or splenomegaly. MUSCULOSKELETAL: Normal range of motion at all joints. No bony deformities or tenderness. No CVA tenderness. UPPER EXTREMITIES: 2+ pulses, warm, well-perfused. No cyanosis. No clubbing. No peripheral edema. LOWER EXTREMITIES: 2+ pulses, warm, well-perfused. No calf tenderness. No peripheral edema. NEUROLOGICAL: Cranial nerves II-XII intact. Normal speech. Gait not observed PSYCHIATRIC: Cooperative. Good eye contact. Appropriate mood and affect. SKIN: Warm, dry, normal turgor, no rashes or lesions noted, normal capillary refill. Laboratory Results - last 24 hr 3 09/22/17 09/22/17 09/22/17 15:55 15:55 15:55 WBC 9.8 D RBC 4.79 Hgb 13.8 D Hct 41.8 MCV 87.3 MCH 28.8 MCHC 33.0 RDW 15.8 Plt Count 144 MPV 9.1 Neutrophils % 88.4 H Lymphocytes % 3.9 L D Monocytes % 7.0 Eosinophils % 0.4 D Basophils % 0.3 PT with INR INR VBG pH 7.34 POC VBG pCO2 52.7 H POC VBG pO2 26.6 L Mixed VBG HCO3 27.7 H Sodium 139 Potassium 4.3 Chloride 101 Carbon Dioxide 28 Anion Gap 10 BUN 11 D Creatinine 1.1 D Creat Clearance w eGFR > 60 Random Glucose 83 Lactic Acid Calcium 8.2 L Total Bilirubin 0.8 D AST 15 ALT 15 Alkaline Phosphatase 93 LD Total 210 B-Natriuretic Peptide 1836.75 H Total Protein 6.8 Albumin 3.2 L Urine Color Urine Appearance Urine pH Ur Specific [place] Urine Protein Urine Glucose (UA) Urine Ketones Urine Blood Urine Nitrite Urine Bilirubin Urine Urobilinogen Ur Leukocyte Esterase Urine WBC (Auto) Urine RBC (Auto) 3 09/22/17 09/22/17 09/22/17 15:55 17:33 17:44 WBC RBC Hgb Hct MCV MCH MCHC RDW Plt Count MPV Neutrophils % Lymphocytes % Monocytes % Eosinophils % Basophils % PT with INR 35.90 H INR 3.18 H D VBG pH POC VBG pCO2 POC VBG pO2 Mixed VBG HCO3 Sodium Potassium Chloride Carbon Dioxide Anion Gap BUN Creatinine Creat Clearance w eGFR Random Glucose Lactic Acid 1.0 Calcium Total Bilirubin AST ALT Alkaline Phosphatase LD Total B-Natriuretic Peptide Total Protein Albumin Urine Color Maki Urine Appearance Cloudy Urine pH 6.0 D Ur Specific [place] 1.023 Urine Protein Negative Urine Glucose (UA) Negative Urine Ketones Negative Urine Blood 3+ H Urine Nitrite Negative Urine Bilirubin Negative Urine Urobilinogen Negative Ur Leukocyte Esterase Negative Urine WBC (Auto) None Urine RBC (Auto) None Radiology Report CXR IMPRESSION: Cardiomegaly, no acute pathology. Reported By: Taurus Young MD 09/22/17 2150 ASSESSMENT/PLAN: 87yM with PMH CAD s/p CABG, HLD, afib, recurrent UTI, CVA r sided weakness, BPH presented to the ED with worsening cough. Pneumonia, CAP - treating for pna based on symptoms despite neg CXR - cont azithromycin and ceftriaxone - Duoneb QID, albuterol PRN - consider chest CT CAD/HTN/HLD - off lasix at home, will restart ans blunting of costophrenic angles noted on xray - cont home toprol. lipitor Afib - hold warfarin until INR less than 3, monitor closely while on antibiotics - rate well controlled with toprol DVT PPX - on warfarin FEN - Tolerating po fluids - bmp in am - low sodium diet as tolerated Dispo: Pt currently requires further observation and tx for management of his emergent condition. Visit type - Emergency Visit Emergency Visit: Yes ED Registration Date: 09/22/17 Care time: The patient presented to the Emergency Department on the above date and was hospitalized for further evaluation of their emergent condition. - New Patient This patient is new to me today: Yes Date on this admission: 09/23/17 - Critical Care Critical Care patient: No Hospitalist Screening - Colonoscopy Questionnaire Colonoscopy Questionnaire: Colonoscopy Questionnaire - Patient: 50 - 75 years old and never had a screening colonoscopy: No History of colon or rectal polyps, or CA: No History of IBD, Crohn's disease or UC: No History of abdominal radiation therapy as a child: No - Relative: 1 with colon or rectal CA, or polyps at age 60 or younger: No Colon or rectal CA diagnosed at age 45 or younger: No Multiple relatives with colon or rectal CA: No - Outcome: Screening Result: Negative Screen
[2017-09-22] MEDS ORDERED: ALBUTEROL SO4 0.083% IH SOL 2.5 MG/3 ML VIAL.NEB. NEB PRN (23:51)
[2017-09-22] MEDS ORDERED: BENZOCAINE/MENTH/CETYLPYRD CL 1 EACH LOZENGE MM PRN (23:55)
[2017-09-23] MEDS ORDERED: HEPARIN NA (PORCINE) 5,000 UNITS/ML 1ML VIAL SQ SCH (02:00)
[2017-09-23] MEDS: FUROSEMIDE 40 MG TABLET (FP) PO SCH ×2 (06:37→15:04)
[2017-09-23 07:15] LABS: BASO % 0.1 % (0-2.0); HEMATOCRIT 39.1 % (35.4-49); HEMOGLOBIN 12.7 GM/dL (11.7-16.9); LYMPH % 2.2 % (8-40); MCH 28.4 pg (25.7-33.7); MCHC 32.4 g/dl (32.0-35.9); MEAN CELL VOLUME 87.6 fl (80-96); MEAN PLT VOLUME 9.6 fl (7.5-11.1); MONO % 3.9 % (3.8-10.2); NEUT % 93.8 % (42.8-82.8); PLATELET COUNT 145 K/MM3 (134-434); RBC 4.46 M/mm3 (4.00-5.60); WHITE BLOOD COUNT 10.4 K/mm3 (4.0-10.0)
[2017-09-23 07:46] LABS: ALBUMIN 2.9 g/dl (3.4-5.0); ANION GAP 12 (8-16); BLOOD UREA NITROGEN 16 mg/dL (7-18); CALCIUM 8.4 mg/dL (8.5-10.1); CHLORIDE 103 mmol/L (98-107); CO2 24 mmol/L (21-32); GLUCOSE,RANDOM 126 mg/dL (74-106); POTASSIUM 4.5 mmol/L (3.5-5.1); SODIUM 139 mmol/L (136-145)
[2017-09-23 07:50] LABS: ALK PHOS 83 U/L (45-117); BILIRUBIN,TOTAL 0.4 mg/dL (0.2-1.0); MAGNESIUM 2.1 mg/dL (1.8-2.4); SGOT/AST 12 U/L (15-37); SGPT/ALT 12 U/L (12-78); TOT PROT 6.3 g/dl (6.4-8.2)
[2017-09-23 07:54] LABS: INR 3.08 (0.82-1.09); PROTHROMBIN TIME (PATIENT) 34.8 SEC (9.98-11.88)
[2017-09-23] MEDS: ALBUTEROL SO4 2.5/IPRATROPIUM 0.5 INH SOL 3 ML VIAL.NEB. NEB SCH ×4 (08:45→21:05)
[2017-09-23] MEDS ORDERED: PT OWN MED DRAWER 7, Y5N ONE (11:12)
[2017-09-23] MEDS: TAMSULOSIN HCL 0.4 MG CAP.ER.24H (FP) PO SCH (11:22)
[2017-09-23] MEDS: AZITHROMYCIN IVPB 250 MG in DEXTROSE 5%-WATER - 250 ML IVPB SCH (11:22)
--- NOTE | 2017-09-23 11:34 | PN ---
Progress Note (short form) - Note Progress Note: ID consult dictated imp/reccd 87 year old man lives at home with his son and family admitted with increased cough and diarrhea diarrhea now stopped cough improved he self d/dariel his lasix recently temp 101 in ED influenza ang negative he received rocephin/zithromax and steroids in ED fever/cough- ?bronchitis no clear infiltrate on cxray continue rocephin suspect leukocytosis due to steroids diarrhea resolved lasix restarted- chf/volume overload- Problem List - Problems (1) Bronchitis Code(s): J40 - BRONCHITIS, NOT SPECIFIED ACUTE OR CHRONIC (2) CHF (congestive heart failure) Code(s): I50.9 - HEART FAILURE, UNSPECIFIED
--- NOTE | 2017-09-23 11:58 | CONS ---
INFECTIOUS DISEASE CONSULTATION DATE OF CONSULTATION: DATE OF DICTATION: 09/23/2017 REQUESTING PHYSICIAN: The hospitalist service. This is an 87-year-old man. He lives at home with his son and family. He has been coughing for a while. The cough worsened, he felt weak, he had a day of diarrhea, and he presented to the emergency room last night. In the ER, he had fever of 101. He had diffuse rhonchi on exam. Chest x-ray was clear. Influenza antigen was negative. He was admitted for further evaluation. Urinalysis is negative as well. He does have a history of prior UTIs. I am asked to see him for further evaluation. This morning, he reports feeling much better. His cough is less. His diarrhea has stopped. There is no history of any travel. ALLERGIES: He has no known drug allergies. MEDICATIONS AN OUTPATIENT: Include atorvastatin, Colace, Toprol-XL, Desyrel, senna, Flomax, Coumadin, Lasix. PAST MEDICAL HISTORY: Notable for coronary artery disease, hypertension, hyperlipidemia. He had UTIs in the past as well as atrial fibrillation. He has had a CVA with right-sided weakness and BPH. SURGICAL HISTORY: Notable for CABG. FAMILY HISTORY: Notable for mother from rectal cancer. Father from emphysema. SOCIAL HISTORY: He lives with his son and family, and he is a former smoker, quit 25 years ago. No history of alcohol or substance use. REVIEW OF SYSTEMS: Currently, his diarrhea has stopped, and his cough has improved. Of note, he reports that he was supposed to be taking Lasix at home, but given that his leg edema had resolved, he stopped his Lasix as it was making him urinate frequently. PHYSICAL EXAMINATION: General: He is a pleasant man in no acute distress. Vital Signs: His T-max was 101 in the emergency room, currently 97.9. Pulse of 53, blood pressure 141/75, respiratory rate is 18. He is saturating 98% on room air. HEENT: He is normocephalic. His eyes are anicteric. Neck: Supple. Lungs: Bilateral rhonchi. Heart: Regular rate and rhythm. Abdomen: Soft, nontender. Extremities: Without edema. DIAGNOSTIC DATA: White count on admission was 9.8, this morning is 10.4. He did receive steroids overnight. His INR is 3. BUN is 16 and creatinine 1. LFTs are normal. BNP is elevated at 1836. Urinalysis has 3+ blood and is otherwise negative. Influenza screen is negative. Cultures are pending. Chest x-ray is notable for cardiomegaly, slightly increased interstitial markings with some blunting of the costophrenic angles. In summary, this is an 87-year-old man with fever, cough, possible bronchitis, no clear infiltrate on chest x-ray. I would suggest we continue Rocephin. I suspect his leukocytosis is due to steroids. Diarrhea has resolved. Lastly, congestive heart failure, volume overload. His Lasix has been restarted. Further recommendations to follow based on his clinical course. NENA LOPEZ M.D. [id number]
[2017-09-23] MEDS: CEFTRIAXONE 1 GM/50 ML BAG IVPB SCH (15:04)
[2017-09-23] MEDS ORDERED: WARFARIN NA 5 MG TABLET (UD) PO SCH (18:00)
--- NOTE | 2017-09-23 19:12 | PN ---
Progress Note, Physician Chief Complaint: Bronchitis History of Present Illness: NAD, comfortable, afebrile CXR unremarkable IV abx seen by ID leukocytosis 2/2 to IV steroid he received in ER - Current Medication List Current Medications: Active Medications Albuterol Sulfate (Ventolin 0.083% Nebulizer Soln -) 1 amp NEB Q4H PRN PRN Reason: SHORT OF BREATH/WHEEZING Albuterol/Ipratropium (Duoneb -) 1 amp NEB RQID [facility] Last Admin: 09/23/17 16:50 Dose: 1 amp Atorvastatin Calcium (Lipitor -) 20 mg PO [facility] Last Admin: 09/22/17 22:16 Dose: 20 mg Docusate Sodium (Colace -) 300 mg PO [facility] Last Admin: 09/22/17 22:16 Dose: 300 mg Furosemide (Lasix -) 40 mg PO BIDLASIX [facility] Last Admin: 09/23/17 15:04 Dose: 40 mg Ceftriaxone Sodium (Rocephin 1gm Ivpb (Pre-Docked)) 1 gm in 50 mls @ 100 mls/ hr IVPB DAILY [facility] Last Admin: 09/23/17 15:04 Dose: 100 mls/hr Azithromycin 250 mg/ Dextrose 250 mls @ 250 mls/hr IVPB DAILY [facility] Stop: 09/26/17 10:59 Last Admin: 09/23/17 11:22 Dose: 250 mls/hr Latanoprost (Xalatan 0.005% Eye Drops -) 1 drop OU [facility] Last Admin: 09/22/17 23:03 Dose: 1 drop Metoprolol Succinate (Toprol Xl -) 50 mg PO [facility] Last Admin: 09/22/17 22:16 Dose: 50 mg Senna (Senna -) 2 tab PO [facility] Last Admin: 09/22/17 22:16 Dose: 2 tab Tamsulosin HCl (Flomax -) 0.4 mg PO DAILY [facility] Last Admin: 09/23/17 11:22 Dose: 0.4 mg Trazodone HCl (Desyrel -) 50 mg PO [facility] Last Admin: 09/22/17 22:16 Dose: 50 mg - Objective Vital Signs: Vital Signs Temperature 97.9 F 09/23/17 18:00 Pulse Rate 71 09/23/17 18:00 Respiratory Rate 19 09/23/17 18:00 Blood Pressure 128/67 09/23/17 18:00 O2 Sat by Pulse Oximetry (%) 98 09/23/17 13:00 Constitutional: Yes: Well Nourished, No Distress, Calm Cardiovascular: Yes: Pulse Irregular Respiratory: Yes: Regular, Cough Gastrointestinal: Yes: Normal Bowel Sounds, Soft, Abdomen, Obese Musculoskeletal: Yes: Muscle Weakness Edema: No Peripheral Pulses WNL: Yes Neurological: Yes: Alert, Oriented Psychiatric: Yes: Alert, Oriented Labs: CBC, BMP 09/23/17 06:45 09/23/17 06:45 INR, PTT INR 3.08 (0.82-1.09) H 09/23/17 06:45 Problem List - Problems (1) PAF (paroxysmal atrial fibrillation) Assessment/Plan: -On warfarin -Warfarin on hold for elevated INR -Repeat INR in AM -Last Echo done at [facility] in 2013 showed no MV stenosis, if echo done outpatient shows no MV stenosis, could be changed to one of the DOAC's. Would leave it up to Primary care Dr Stephens to make the decision. 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 Code(s): I48.0 - PAROXYSMAL ATRIAL FIBRILLATION (2) Bronchitis Assessment/Plan: -seen by ID -IV abx -Afebrile -Nasal O2 PRN -Bronchodilators -Robitussin/cepacol lozenges Code(s): J40 - BRONCHITIS, NOT SPECIFIED ACUTE OR CHRONIC Assessment/Plan see problem list Physical therapy eval in AM
[2017-09-23] MEDS: DOCUSATE SODIUM 100 MG CAPSULE (FP) PO SCH (21:17)
[2017-09-23] MEDS: guaiFENesin/D-METHORPHAN HB 10 ML UNIT-DOSE CUPS PO PRN (21:17)
[2017-09-23] MEDS: traZODone HCL 50 MG TABLET (FP) PO SCH (21:17)
[2017-09-23] MEDS: SENNOSIDES 8.6MG TABLET (FP) PO SCH (21:17)
[2017-09-23] MEDS: LATANOPROST 0.005% OPHTH SOLN 2.5ML BOTTLE OU SCH (21:18)
[2017-09-23] MEDS: ATORVASTATIN CA 20 MG TABLET (FP) PO SCH (21:18)
[2017-09-24] MEDS: FUROSEMIDE 40 MG TABLET (FP) PO SCH ×2 (06:15→14:55)
[2017-09-24] MEDS: BENZOCAINE/MENTH/CETYLPYRD CL 1 EACH LOZENGE MM PRN ×2 (06:22→21:20)
[2017-09-24] MEDS: ALBUTEROL SO4 2.5/IPRATROPIUM 0.5 INH SOL 3 ML VIAL.NEB. NEB SCH ×4 (07:32→20:20)
[2017-09-24 07:50] LABS: INR 1.96 (0.82-1.09); PROTHROMBIN TIME (PATIENT) 22.1 SEC (9.98-11.88)
[2017-09-24] MEDS: TAMSULOSIN HCL 0.4 MG CAP.ER.24H (FP) PO SCH (10:10)
[2017-09-24] MEDS: AZITHROMYCIN IVPB 250 MG in DEXTROSE 5%-WATER - 250 ML IVPB SCH (10:10)
[2017-09-24] MEDS: CEFTRIAXONE 1 GM/50 ML BAG IVPB SCH (10:10)
--- NOTE | 2017-09-24 13:19 | PN ---
Progress Note (short form) - Note Progress Note: cough improved no diarrhea has not had a bm since admission no dysuria Vital Signs Period Temp Pulse Resp BP Sys/Saldaña Pulse Ox Last 24 Hr 97.6 F-98 F 58-76 18-19 119-134/54-73 99-99 cor-rrr lungs decreased bs at bases abd soft,nt ext no edema CBC, BMP 09/23/17 06:45 09/23/17 06:45 UA negative a/p fever/cough- ?bronchitis, now day #2 rocephin/zithromax no clear infiltrate on cxray can switch to po ceftin when ready for discharge ceftin 500 bid for 5 days suspect leukocytosis due to steroids diarrhea resolved lasix restarted- chf/volume overload- Problem List - Problems (1) Bronchitis Code(s): J40 - BRONCHITIS, NOT SPECIFIED ACUTE OR CHRONIC (2) CHF (congestive heart failure) Code(s): I50.9 - HEART FAILURE, UNSPECIFIED
--- NOTE | 2017-09-24 16:15 | PN ---
Progress Note, Physician Chief Complaint: Bronchitis History of Present Illness: NAD, comfortable, afebrile CXR unremarkable IV abx seen by ID leukocytosis 2/2 to IV steroid he received in ER - Current Medication List Current Medications: Active Medications Albuterol Sulfate (Ventolin 0.083% Nebulizer Soln -) 1 amp NEB Q4H PRN PRN Reason: SHORT OF BREATH/WHEEZING Albuterol/Ipratropium (Duoneb -) 1 amp NEB RQID [facility] Last Admin: 09/24/17 12:40 Dose: 1 amp Atorvastatin Calcium (Lipitor -) 20 mg PO [facility] Last Admin: 09/23/17 21:18 Dose: 20 mg Benzocaine/Menthol (Cepacol Lozenge -) 1 each MM PRN PRN PRN Reason: SORE THROAT Last Admin: 09/24/17 06:22 Dose: 1 each Docusate Sodium (Colace -) 300 mg PO [facility] Last Admin: 09/23/17 21:17 Dose: 300 mg Furosemide (Lasix -) 40 mg PO BIDLASIX [facility] Last Admin: 09/24/17 14:55 Dose: 40 mg Guaifenesin (Robitussin Dm -) 10 ml PO Q4H PRN PRN Reason: COUGH Last Admin: 09/23/17 21:17 Dose: 10 ml Ceftriaxone Sodium (Rocephin 1gm Ivpb (Pre-Docked)) 1 gm in 50 mls @ 100 mls/ hr IVPB DAILY [facility] Last Admin: 09/24/17 10:10 Dose: 100 mls/hr Azithromycin 250 mg/ Dextrose 250 mls @ 250 mls/hr IVPB DAILY [facility] Stop: 09/26/17 10:59 Last Admin: 09/24/17 10:10 Dose: 250 mls/hr Latanoprost (Xalatan 0.005% Eye Drops -) 1 drop OU [facility] Last Admin: 09/23/17 21:18 Dose: 1 drop Metoprolol Succinate (Toprol Xl -) 50 mg PO [facility] Last Admin: 09/23/17 21:18 Dose: 50 mg Senna (Senna -) 2 tab PO [facility] Last Admin: 09/23/17 21:17 Dose: 2 tab Tamsulosin HCl (Flomax -) 0.4 mg PO DAILY [facility] Last Admin: 09/24/17 10:10 Dose: 0.4 mg Trazodone HCl (Desyrel -) 50 mg PO HS [facility] Last Admin: 09/23/17 21:17 Dose: 50 mg - Objective Vital Signs: Vital Signs Temperature 99.5 F 09/24/17 14:46 Pulse Rate 90 09/24/17 14:46 Respiratory Rate 18 09/24/17 14:46 Blood Pressure 119/56 09/24/17 14:46 O2 Sat by Pulse Oximetry (%) 99 09/24/17 08:00 Constitutional: Yes: Well Nourished, No Distress, Calm Cardiovascular: Yes: Regular Rate and Rhythm Respiratory: Yes: Regular Gastrointestinal: Yes: Normal Bowel Sounds, Soft, Abdomen, Obese Musculoskeletal: Yes: WNL Extremities: Yes: WNL Edema: No Peripheral Pulses WNL: Yes Neurological: Yes: Alert, Oriented Psychiatric: Yes: Alert, Oriented Labs: CBC, BMP 09/23/17 06:45 09/23/17 06:45 INR, PTT INR 1.96 (0.82-1.09) H D 09/24/17 06:00 Problem List - Problems (1) PAF (paroxysmal atrial fibrillation) Assessment/Plan: -On warfarin -restart Warfarin, was taking 5 mg alternating with 6 mg, switch to 6 mg MWF and 5 mg all other days -Repeat INR outpatient -Last Echo done at [facility] in 2013 showed no MV stenosis, if echo done outpatient shows no MV stenosis, could be changed to one of the DOAC's. Would leave it up to Primary care Dr Stephens to make the decision. 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 Code(s): I48.0 - PAROXYSMAL ATRIAL FIBRILLATION (2) Bronchitis Assessment/Plan: -seen by ID -IV abx---> switch to PO once discharged, prescription sent in to pharmacy -Afebrile -Nasal O2 PRN -Bronchodilators -Robitussin/cepacol lozenges Code(s): J40 - BRONCHITIS, NOT SPECIFIED ACUTE OR CHRONIC Assessment/Plan see problem list Seen by Physical therapy, refuses SNF at this time.
[2017-09-24] MEDS ORDERED: WARFARIN NA 3 MG TABLET PO SCH (18:00)
[2017-09-24] MEDS: LATANOPROST 0.005% OPHTH SOLN 2.5ML BOTTLE OU SCH (21:20)
[2017-09-24] MEDS: SENNOSIDES 8.6MG TABLET (FP) PO SCH (21:21)
[2017-09-24] MEDS: traZODone HCL 50 MG TABLET (FP) PO SCH (21:21)
[2017-09-24] MEDS: ATORVASTATIN CA 20 MG TABLET (FP) PO SCH (21:21)
[2017-09-24] MEDS: DOCUSATE SODIUM 100 MG CAPSULE (FP) PO SCH (21:21)
[2017-09-24] MEDS: guaiFENesin/D-METHORPHAN HB 10 ML UNIT-DOSE CUPS PO PRN (21:22)
--- NOTE | 2017-09-24 21:50 | EKG ---
Test Reason : Blood Pressure : / mmHG Vent. Rate : 074 BPM Atrial Rate : 074 BPM P-R Int : 194 ms QRS Dur : 114 ms QT Int : 406 ms P-R-T Axes : 080 041 034 degrees QTc Int : 450 ms NORMAL SINUS RHYTHM POSSIBLE INFERIOR INFARCT (CITED ON OR BEFORE 25-APR-2017) ABNORMAL ECG WHEN COMPARED WITH ECG OF 24-AUG-2017 04:19, NO SIGNIFICANT CHANGE WAS FOUND Confirmed by GABRIELLE MOSLEY MD ([id number]) on 09/24/2017 9:50:04 PM Referred By: Confirmed By:GABRIELLE MOSLEY MD
[2017-09-25] MEDS: FUROSEMIDE 40 MG TABLET (FP) PO SCH (06:40)
[2017-09-25] MEDS: ALBUTEROL SO4 2.5/IPRATROPIUM 0.5 INH SOL 3 ML VIAL.NEB. NEB SCH ×2 (08:20→11:13)
[2017-09-25 09:48] VITALS: BP 118/65; PULSE 78; TEMP 98.6
[2017-09-25] MEDS ORDERED: PT OWN MED DRAWER 7, Y5N ONE (09:51)
[2017-09-25] MEDS: TAMSULOSIN HCL 0.4 MG CAP.ER.24H (FP) PO SCH (09:54)
[2017-09-25] MEDS: CEFTRIAXONE 1 GM/50 ML BAG IVPB SCH (09:54)
[2017-09-25] MEDS: AZITHROMYCIN IVPB 250 MG in DEXTROSE 5%-WATER - 250 ML IVPB SCH (09:57)
--- NOTE | 2017-09-25 11:33 | DS ---
Physical Examination Vital Signs: Vital Signs Temperature 98.6 F 09/25/17 09:48 Pulse Rate 78 09/25/17 09:48 Respiratory Rate 18 09/25/17 09:48 Blood Pressure 118/65 09/25/17 09:48 O2 Sat by Pulse Oximetry (%) 99 09/25/17 00:00 awake alert oriented ready to go home Constitutional: Yes: Calm Neck: Yes: Trachea Midline Cardiovascular: Yes: Regular Rate and Rhythm, S1, S2 Respiratory: Yes: CTA Bilaterally Gastrointestinal: Yes: Normal Bowel Sounds, Soft Edema: No Neurological: Yes: Alert, Oriented Labs: CBC, BMP 09/23/17 06:45 09/23/17 06:45 Discharge Summary Reason For Visit: RESPIRATORY DISTRESS Hospital Course: CHIEF COMPLAINT: Cough, SOB, sore throat PCP: Angelo HISTORY OF PRESENT ILLNESS: This is an 87 year old male with a past medical history significant for CAD s/p CABG, HTN, HLD who presented to the ED with mild cough x a few weeks, worsening over past 3 days. Pt also c/o sore throat and hoarse voice. Denies palpitations or chest pain. Pt reports that he has not been taking his lasix because it makes him urinate too frequently and his legs weren't swollen ER course was notable for: (1) CXR without acute findings (2) BNP 1836, no prior in computer (3) WBC 9.8 with 88% neutx Recent Travel: pt denies PAST MEDICAL HISTORY: CAD, HLD, afib, recurrent UTI, CVA r sided weakness, BPH PAST SURGICAL HISTORY: CABG Social History: Smoking: quit 25y ago, previous pipe smoker Alcohol: pt denies Drugs: pt denies possible bronchitis given normal cxr on iv abx changed to ceftin leukocytosis secondary to steroids no fever PAF on coumadin Condition: Stable - Instructions Diet, Activity, Other Instructions: -Ceftin 500 mg 2 x day for 5 days -Warfarin, change dosage to 6 mg MWF and 5 mg all other days Referrals: Ana Paula Stephens MD [Primary Care Provider] - Disposition: HOME - Home Medications Comprehensive Discharge Medication List: Ambulatory Orders Atorvastatin Ca [Lipitor] 20 mg PO HS 02/25/14 Docusate Sodium [Colace] 100 mg PO HS 02/25/14 Metoprolol Succinate [Toprol Xl] 50 mg PO HS 02/25/14 traZODone HCL [Desyrel -] 50 mg PO HS 02/25/14 Sennosides [Senna -] 2 tab PO HS 04/24/17 Tamsulosin HCl [Flomax -] 0.4 mg PO DAILY 04/24/17 Furosemide [Lasix] 40 mg PO BID 09/22/17 Latanoprost 0.005% Eye Drops [Xalatan 0.005% Eye Drops -] 1 drop HS 09/22/17 Cefuroxime Axetil [Ceftin -] 500 mg PO Q12H #10 tablet 09/24/17 Warfarin Na [Coumadin -] 7 mg PO DAILY@1800 #0 tablet 09/24/17
== END 2017-09-25 11:28 | disposition home or self-care (01) ==
LOC: JER 14:29 → JERBED 18:03 → J5S 20:22
PROVIDERS: ADMIT Internal Medicine; ATTEND Family Medicine
PROC: 3E03329 Introduction of Other Anti-infective into Peripheral Vein, Percutaneous Approach (ICD-10-PCS; principal; 2017-09-22)
PROC: 3E033NZ Introduction of Analgesics, Hypnotics, Sedatives into Peripheral Vein, Percutaneous Approach (ICD-10-PCS; 2017-09-22)
PROC: 3E0337Z Introduction of Electrolytic and Water Balance Substance into Peripheral Vein, Percutaneous Approach (ICD-10-PCS; 2017-09-22)
PROC: 3E0F7GC Introduction of Other Therapeutic Substance into Respiratory Tract, Via Natural or Artificial Opening (ICD-10-PCS; 2017-09-22)
DX: J18.9 Pneumonia, unspecified organism (principal); J40 Bronchitis, not specified as acute or chronic; I50.9 Heart failure, unspecified; I48.0 Paroxysmal atrial fibrillation; R50.9 Fever, unspecified; I10 Essential (primary) hypertension; I25.10 Atherosclerotic heart disease of native coronary artery without angina pectoris; E78.5 Hyperlipidemia, unspecified; I69.351 Hemiplegia and hemiparesis following cerebral infarction affecting right dominant side; R26.2 Difficulty in walking, not elsewhere classified; Z99.89 Dependence on other enabling machines and devices; Z79.01 Long term (current) use of anticoagulants; Z87.440 Personal history of urinary (tract) infections; Z95.1 Presence of aortocoronary bypass graft; Z87.891 Personal history of nicotine dependence
CPT/HCPCS: 36415; 71045-TC-FY; 80053; 81003; 81015; 82803; 83605; 83615; 83735; 83880; 85025; 85610; 87040; 87086; 87186; 87804; 93005; 93010; 94640; 96365; 96375; 97161-GP; 99285-25; G0378; J0131